=== PATIENT | female | born 1980 | race Hispanic/Latino ===

== ENCOUNTER → 2023-12-13 09:45 | Outpatient (REF) | payer OTHER, SELFPAY ==
[2023-12-13 11:12] LABS: Hemoglobin 11.1 g/dL (12.0-16.0)
[2023-12-13 12:06] LABS: Glycohemoglobin (HgbA1c) 5.4 % (4.0-5.6)
[2023-12-13 13:23] LABS: ALT (SGPT) 12 U/L (0-35); AST (SGOT) 22 U/L (14-36); Albumin 4.5 g/dl (3.5-5.0); Alkaline Phosphatase 85 U/L (38-126); Blood Urea Nitrogen 14 mg/dl (7-17); Calcium 9.7 mg/dl (8.4-10.2); Carbon Dioxide 26 mmol/L (22-30); Chloride 104 mmol/L (98-107); Glucose 96 mg/dl (70-99); HDL Cholesterol 61 mg/dl; LDL Cholesterol, Calculated 101 mg/dl; Potassium 4.5 mmol/L (3.5-5.1); Sodium 140 mmol/L (135-145); Total Bilirubin 0.4 mg/dl (0.2-1.3); Total Cholesterol 170 mg/dl (50-199); Total Protein 7.2 g/dl (6.3-8.2); Triglyceride 43 mg/dl (10-149); Very Low Density Lipoprotein 8 mg/dl (0-30); eGFR > 60.00
[2023-12-14 18:05] LABS: H. pylori Breath Test Negative (Negative)
== END ==
LOC: REG 09:45
PROVIDERS: ATTENDING PHYSICIAN Nurse Practitioner Acute Care
DX: R10.13 Epigastric pain (principal)
CPT/HCPCS: 36415; 80053; 80061; 83013; 83036; 85018

== ENCOUNTER → 2023-12-18 14:57 | Outpatient (REF) | payer OTHER, SELFPAY | LOC: CLINIC 14:57 | PROVIDERS: ATTENDING PHYSICIAN Nurse Practitioner Acute Care | DX: Z12.31 Encounter for screening mammogram for malignant neoplasm of breast (principal) | CPT/HCPCS: 77063; 77067 ==

== ENCOUNTER → 2025-01-29 10:03 | Outpatient (REF) | payer OTHER, SELFPAY ==
[2025-01-29 10:56] LABS: Hematocrit 36.6 % (37.0-47.0); Hemoglobin 11.4 g/dL (12.0-16.0); Mean Corp Hgb Conc. 31.1 g/dL (33.0-37.0); Mean Corpuscular Volume 84.5 fL (81.0-99.0); Platelet Count 249 10^3/uL (130-400); Red Cell Dist. Width 15.0 % (11.5-14.5)
[2025-01-29 11:36] LABS: ALT (SGPT) 13 U/L (0-35); AST (SGOT) 19 U/L (14-36); Albumin 4.6 g/dl (3.5-5.0); Alkaline Phosphatase 71 U/L (38-126); Blood Urea Nitrogen 13 mg/dl (7-17); Calcium 9.7 mg/dl (8.4-10.2); Carbon Dioxide 27 mmol/L (22-30); Chloride 107 mmol/L (98-107); Glucose 100 mg/dl (70-99); Potassium 4.7 mmol/L (3.5-5.1); Sodium 140 mmol/L (135-145); Total Protein 7.9 g/dl (6.3-8.2); eGFR > 60.00
== END ==
LOC: CLINIC 10:03
PROVIDERS: ATTENDING PHYSICIAN Nurse Practitioner Adult Health
DX: R10.13 Epigastric pain (principal)
CPT/HCPCS: 36415; 80053; 83013; 85027

== ENCOUNTER → 2025-02-09 16:52 | Outpatient (REF) | payer OTHER, SELFPAY | LOC: CLINIC 16:52 | PROVIDERS: ATTENDING PHYSICIAN Nurse Practitioner Adult Health | DX: R10.13 Epigastric pain (principal) | CPT/HCPCS: 82270 ==

== ENCOUNTER 2025-04-16 21:58 | Day surgery (SDC) | payer OTHER, SELFPAY ==
[2025-04-16 14:02] VITALS: BP 138/69
[2025-04-16 14:40] LABS: Hematocrit 38.9 % (37.0-47.0); Hemoglobin 11.9 g/dL (12.0-16.0); Mean Corp Hgb Conc. 30.6 g/dL (33.0-37.0); Mean Corpuscular Volume 87.6 fL (81.0-99.0); Nucleated Red Blood Cells % 0 %; Platelet Count 293 10^3/uL (130-400); Red Cell Dist. Width 15.1 % (11.5-14.5)
[2025-04-16 15:01] LABS: HCG, Serum Qualitative Screen Negative
[2025-04-16 15:05] LABS: ALT (SGPT) 17 U/L (0-35); AST (SGOT) 24 U/L (14-36); Albumin 4.8 g/dl (3.5-5.0); Alkaline Phosphatase 85 U/L (38-126); Blood Urea Nitrogen 10 mg/dl (7-17); Calcium 10.2 mg/dl (8.4-10.2); Carbon Dioxide 29 mmol/L (22-30); Chloride 103 mmol/L (98-107); Glucose 106 mg/dl (70-99); Lipase 81 U/L (23-300); Potassium 4.3 mmol/L (3.5-5.1); Sodium 137 mmol/L (135-145); Total Protein 8.5 g/dl (6.3-8.2); eGFR > 60.00
[2025-04-16 15:08] LABS: Troponin I < 0.012 ng/ml
[2025-04-16 18:09] VITALS: BP 135/79
[2025-04-16 18:10] VITALS: BMI 27.6
--- NOTE | 2025-04-16 18:39 | ED.GENMED ---
History of Present Illness
<Hollie Brown NP - Last Filed: 04/16/25 23:31>
General
Chief Complaint: Abdominal Pain
Source: patient
Exam Limitations: none
Time Seen by Provider: 04/16/25 18:01
Nursing documentation reviewed up to this point in time: agreed with
History of Present Illness
History of Present Illness:
Patient to the emergency department with complaint of severe upper abdominal pain. Symptoms started this morning. She states she has had upper abdominal pain in the past however the pain usually responds to Pepto-Bismol or Tums. Today the pain
was worse in intensity and did not respond to Tums or Pepto. She denies any vomiting, reports some nausea. She denies any fever or chills. She brought to the emergency department by her daughter for evaluation.
Past History
<Hollie Brown NP - Last Filed: 04/16/25 23:31>
Past History
ED Past Medical History: None
ED Past Surgical History:
Social History
Tobacco: Non-smoker
Alcohol: None
Drug: None
Living: with family
Family History
Family History: Other (No significant)
Review of Systems
<Hollie Brown NP - Last Filed: 04/16/25 23:31>
Review of Systems
Allergies reviewed?: Yes
All Other Systems: ROS reviewed and negative except as documented in HPI and ROS
Constitutional: Reports no symptoms
EENT: Reports no symptoms
Respiratory: Reports no symptoms
Cardiac: Reports no symptoms
ABD/GI: Reports abdominal pain (Upper abdominal pain radiating through to her back.)
: Reports no symptoms
Musculoskeletal: Reports no symptoms
Skin: Reports no symptoms
Neurological: Reports no symptoms
Psychiatric: Reports no symptoms
Phy Exam
<Hollie Brown NP - Last Filed: 04/16/25 23:31>
General Physical Exam
General Presentation: moderate distress
General age: appears stated age
General Skin: warm and dry
General Habitus: normal
General Mental: alert
Cardiovascular Exam
Cardiovascular Exam: regular rate/rhythm and no edema
Pulmonary Exam
Pulmonary Exam: lungs clear and no respiratory distress
Gastrointestinal Exam
Gastrointestinal Exam: normal bowel sounds, soft, no organomegaly, no pulsatile mass, non distended and no cva tenderness
Palpation: left upper quadrant: Mild tenderness, left lower quadrant: No tenderness, right upper quadrant: Moderate tenderness and right lower quadrant: No tenderness
Musculoskeletal Exam
Musculoskeletal Exam: full ROM and neuro vasc intact
Skin Exam
Skin Exam: normal color, warm/dry and no rash
Psychiatric Exam
Psychiatric Exam: normal mood/affect
Course
<Hollie Brown NP - Last Filed: 04/16/25 23:31>
Orders/Labs/Results
Orders:
Orders
04/16/25 14:04
Electrocardiogram (*1) Urgent
Reason for Study: Abdominal Pain
04/16/25 14:05
EKG- Treatment ONCE
Test Result ONCE
04/16/25 14:26
Complete Blood Count/With Diff Urgent
Comprehensive Metabolic Panel Urgent
HCG, Serum Qualitative Screen Urgent
Lipase Urgent
Comment: ADD ON
Troponin I Urgent
04/16/25 14:34
Add On- LAB Urgent
Tests Added?: Lipase
04/16/25 Dinner
NPO
Allow oral meds: Yes
Allow clear liquids: No
NPO with Ice Chips: No
04/16/25 18:04
US Abdomen Complete/Upper Urgent
Comment:
Reason For Exam: pain
04/16/25 18:21
Urinalysis Reflex To Culture Urgent
Date Specimen was Collected: 04/16/25
Time Specimen was Collected: 18:19
Urine Microscopic Reflex Cult Urgent
04/16/25 18:39
0.9% Sodium Chloride 1000 ml [Nss] 1,000 ml IV BOLUS
Mag Hydrox/Al Hydrox/Simeth [Maalox] 30 ml Phenobarb/Hyoscy/Atropine/Scop [] 10 ml Viscous Lidocaine 2% [Xylocaine Viscous Cup] 10 ml PO NOW
04/16/25 19:12
Mag Hydrox/Al Hydrox/Simeth [Maalox] 30 ml .ROUTE .STK-MED ONE
Phenobarb/Hyoscy/Atropine/Scop [] 10 ml .ROUTE .STK-MED ONE
Viscous Lidocaine 2% [Xylocaine Viscous Cup] 15 ml .ROUTE .STK-MED ONE
04/16/25 19:46
CT Abd/pelvis W Iv Cont Urgent
Comment:
Reason For Exam: upper abd. pain
04/16/25 21:18
HYDROmorphone [Dilaudid] 0.5 mg IV NOW STA
Ondansetron Injectable [Zofran] 4 mg IV NOW STA
04/16/25 21:47
Admit/Transfer Patient As Directed
Co-Sign Provider:
Level of Care: Observation services
Assign to:: Medical/Surgical
Physician / Group: ya duckworth
Diagnosis: abd pain 2/2 cbd dilation concern choldeocholelithiasis
GASTROINTESTINAL CONSULT Routine
Consulting Provider: Kmear Hernandez
Was physician already notified: Yes
Reason for consult: cbd dilation single gallstone
04/16/25 21:48
Code Status As Directed
Resuscitation Status: Full Code
04/16/25 21:50
PRN Pain Medication Management As Directed
May give lesser potent ordered pain med per pt: Yes
preference::
Protocol:: Medication orders for pain may be administered in a
manner that supports deferring to patient preference
when the pt is:
- Requesting an ordered lesser potent pain medication.
Least to most potent pain medications are defined
as: acetaminophen < NSAID < tramadol < opioids
(morphine, oxycodone, hydromorphone).
- Requesting a lesser dose of the same medication IF
ORDERED.
- Requesting a less intrusive route of administration
if both routes are prescribed by the provider (PO <
IV).
04/16/25 22:36
0.9% Sodium Chloride 1000 ml [Nss] 1,000 ml IV 100 mls/hr
Acetaminophen [Tylenol/Feverall] 650 mg RECTAL Q4HPRN PRN
HYDROmorphone [Dilaudid] 0.5 mg IV Q3HPRN PRN
HYDROmorphone [Dilaudid] 1 mg IV Q4HPRN PRN
Ketorolac [Toradol] 15 mg IV Q6HPRN PRN
Ondansetron Injectable [Zofran] 4 mg IV Q6HPRN PRN
04/16/25 22:36
Activity As Directed
Activity Level: As Tolerated
Pneumatic Compression Sleeves As Directed
Type: Knee high
Vital Signs As Directed
Frequency: Per unit guidelines
DX Deep Vein Thrombosis Video Routine
04/17/25 06:00
Cardiovascular Evaluation IN AM
Complete Blood Count/With Diff IN AM
Comprehensive Metabolic Panel IN AM
MR Mrcp Without IN AM
Comment: include MRI abdomen
Reason For Exam: cbd dilation, gallstones
OK for patient to be off Cardiac Monitoring for MRI: Yes
Recent pill cam endoscopy?: No
Pacemaker/Defibrillator?: No
04/17/25 08:00
Pantoprazole [Protonix IV] 40 mg IV DAILY
04/18/25 06:00
Complete Blood Count/With Diff IN AM
Comprehensive Metabolic Panel IN AM
Abnormal Lab Results
04/16/25 04/16/25
14:26 18:21
Hgb 11.9 L g/dL
(12.0-16.0)
MCH 26.8 L pg
(27.0-31.0)
MCHC 30.6 L g/dL
(33.0-37.0)
RDW 15.1 H %
(11.5-14.5)
MPV 11.5 H fL
(7.4-10.4)
Creatinine 0.5 L mg/dL
(0.6-1.0)
Glucose 106 H mg/dl
(70-99)
Total Protein 8.5 H g/dl
(6.3-8.2)
Urine Ketones 3+ A
(Negative)
Ur Occult Blood Reflex 4+ A
(Negative)
Urine RBC 26-30 A /HPF
(0-2)
Urine Bacteria (Reflex) Few A
(Negative)
Urine Albumin (Reflex) 1+ A
(Neg - Trace)
04/16/25 14:26
04/16/25 14:26
Vital Signs
Initial and Last Documented VS:
Initial Vital Signs
Temp Pulse Resp BP Pulse Ox
98.2 F 67 16 138/69 99
04/16/25 14:02 04/16/25 14:02 04/16/25 14:02 04/16/25 14:02 04/16/25 14:02
Last Documented Vital Signs
Temp Pulse Resp BP Pulse Ox
98.2 F 67 16 135/79 99
04/16/25 14:02 04/16/25 14:02 04/16/25 14:02 04/16/25 18:09 04/16/25 22:00
<Jax Chan, DO - Last Filed: 04/16/25 21:53>
Orders/Labs/Results
Orders:
Orders
04/16/25 14:04
Electrocardiogram (*1) Urgent
Reason for Study: Abdominal Pain
04/16/25 14:05
EKG- Treatment ONCE
Test Result ONCE
04/16/25 14:26
Complete Blood Count/With Diff Urgent
Comprehensive Metabolic Panel Urgent
HCG, Serum Qualitative Screen Urgent
Lipase Urgent
Comment: ADD ON
Troponin I Urgent
04/16/25 14:34
Add On- LAB Urgent
Tests Added?: Lipase
04/16/25 Dinner
NPO
Allow oral meds: Yes
Allow clear liquids: No
NPO with Ice Chips: No
04/16/25 18:04
US Abdomen Complete/Upper Urgent
Comment:
Reason For Exam: pain
04/16/25 18:21
Urinalysis Reflex To Culture Urgent
Date Specimen was Collected: 04/16/25
Time Specimen was Collected: 18:19
Urine Microscopic Reflex Cult Urgent
04/16/25 18:39
0.9% Sodium Chloride 1000 ml [Nss] 1,000 ml IV BOLUS
Mag Hydrox/Al Hydrox/Simeth [Maalox] 30 ml Phenobarb/Hyoscy/Atropine/Scop [] 10 ml Viscous Lidocaine 2% [Xylocaine Viscous Cup] 10 ml PO NOW
04/16/25 19:12
Mag Hydrox/Al Hydrox/Simeth [Maalox] 30 ml .ROUTE .STK-MED ONE
Phenobarb/Hyoscy/Atropine/Scop [] 10 ml .ROUTE .STK-MED ONE
Viscous Lidocaine 2% [Xylocaine Viscous Cup] 15 ml .ROUTE .STK-MED ONE
04/16/25 19:46
CT Abd/pelvis W Iv Cont Urgent
Comment:
Reason For Exam: upper abd. pain
04/16/25 21:18
HYDROmorphone [Dilaudid] 0.5 mg IV NOW STA
Ondansetron Injectable [Zofran] 4 mg IV NOW STA
04/16/25 21:47
Admit/Transfer Patient As Directed
Co-Sign Provider:
Level of Care: Observation services
Assign to:: Medical/Surgical
Physician / Group: ya duckworth
Diagnosis: abd pain 2/2 cbd dilation concern choldeocholelithiasis
GASTROINTESTINAL CONSULT Routine
Consulting Provider: Kemar Hernandez
Was physician already notified: Yes
Reason for consult: cbd dilation single gallstone
04/16/25 21:48
Code Status As Directed
Resuscitation Status: Full Code
04/16/25 21:50
PRN Pain Medication Management As Directed
May give lesser potent ordered pain med per pt: Yes
preference::
Protocol:: Medication orders for pain may be administered in a
manner that supports deferring to patient preference
when the pt is:
- Requesting an ordered lesser potent pain medication.
Least to most potent pain medications are defined
as: acetaminophen < NSAID < tramadol < opioids
(morphine, oxycodone, hydromorphone).
- Requesting a lesser dose of the same medication IF
ORDERED.
- Requesting a less intrusive route of administration
if both routes are prescribed by the provider (PO <
IV).
04/16/25 22:36
0.9% Sodium Chloride 1000 ml [Nss] 1,000 ml IV 100 mls/hr
Acetaminophen [Tylenol/Feverall] 650 mg RECTAL Q4HPRN PRN
HYDROmorphone [Dilaudid] 0.5 mg IV Q3HPRN PRN
HYDROmorphone [Dilaudid] 1 mg IV Q4HPRN PRN
Ketorolac [Toradol] 15 mg IV Q6HPRN PRN
Ondansetron Injectable [Zofran] 4 mg IV Q6HPRN PRN
04/16/25 22:36
Activity As Directed
Activity Level: As Tolerated
Pneumatic Compression Sleeves As Directed
Type: Knee high
Vital Signs As Directed
Frequency: Per unit guidelines
DX Deep Vein Thrombosis Video Routine
04/17/25 06:00
Cardiovascular Evaluation IN AM
Complete Blood Count/With Diff IN AM
Comprehensive Metabolic Panel IN AM
MR Mrcp Without IN AM
Comment: include MRI abdomen
Reason For Exam: cbd dilation, gallstones
OK for patient to be off Cardiac Monitoring for MRI: Yes
Recent pill cam endoscopy?: No
Pacemaker/Defibrillator?: No
04/17/25 08:00
Pantoprazole [Protonix IV] 40 mg IV DAILY
04/18/25 06:00
Complete Blood Count/With Diff IN AM
Comprehensive Metabolic Panel IN AM
Abnormal Lab Results
04/16/25 04/16/25
14:26 18:21
Hgb 11.9 L g/dL
(12.0-16.0)
MCH 26.8 L pg
(27.0-31.0)
MCHC 30.6 L g/dL
(33.0-37.0)
RDW 15.1 H %
(11.5-14.5)
MPV 11.5 H fL
(7.4-10.4)
Creatinine 0.5 L mg/dL
(0.6-1.0)
Glucose 106 H mg/dl
(70-99)
Total Protein 8.5 H g/dl
(6.3-8.2)
Urine Ketones 3+ A
(Negative)
Ur Occult Blood Reflex 4+ A
(Negative)
Urine RBC 26-30 A /HPF
(0-2)
Urine Bacteria (Reflex) Few A
(Negative)
Urine Albumin (Reflex) 1+ A
(Neg - Trace)
04/16/25 14:26
04/16/25 14:26
Vital Signs
Initial and Last Documented VS:
Initial Vital Signs
Temp Pulse Resp BP Pulse Ox
98.2 F 67 16 138/69 99
04/16/25 14:02 04/16/25 14:02 04/16/25 14:02 04/16/25 14:02 04/16/25 14:02
Last Documented Vital Signs
Temp Pulse Resp BP Pulse Ox
98.2 F 67 16 135/79 99
04/16/25 14:02 04/16/25 14:02 04/16/25 14:02 04/16/25 18:09 04/16/25 22:00
<Hollie Brown NP - Last Filed: 04/16/25 23:31>
*Radiology
Radiology exam reviewed: radiology read reviewed
*Pulse Oximetry
SaO2: 100
Oxygen Mode of Delivery: Room air
Patient hypoxic: no
*Critical Care Note
Total Time (30-74mins, 75-104mins- exclusive of procedures): Not Applicable
<Hollie Brown NP - Last Filed: 04/16/25 23:31>
Update Note
Update Note:
Patient to the emergency department with severe upper abdominal pain. Pain started this morning, reports radiation to her back. She reports nausea but no vomiting. Denies fever or chills. She has had upper abdominal pain in the past but states
it typically responds to Pepto or Tums. Today's pain was worse in intensity and now radiates. No improvement with Pepto or Tums. Vital signs stable she remains afebrile. Labs reviewed, WBC 8.4. LFTs normal. Ultrasound report reviewe.
Cholelithiasis noted, no gallbladder wall thickening or findings to suggest biliary tract dilatation. Mildly enlarged common bile duct. Gallbladder wall at least top normal no findings to suggest intrahepatic biliary tract dilatation. She has
mild extrahepatic biliary tract dilatation, CBD measures 0.7 -0.8 cm without findings to confirm radiopaque calculus, consider MRI/MRCP. Results discussed with patient and daughter. Case discussed with Dr. Chan. Will plan to admit to the
hospitalist for given her abdominal pain. Dr. Hernandez notified of above, will consult with patient.
ED Attending Note
<Hollie Brown TALENT ENGINEER - Last Filed: 04/16/25 23:31>
-
Portions of this chart may have been created with voice recognition software.� Occasional wrong word or��sound alike� substitutions may have occurred due to the inherent limitations of voice recognition software.
<Jax Chan DO - Last Filed: 04/16/25 21:53>
ED Attending Note
Patient seen and examined by attending physician: Yes
ED Attending Note:
I have reviewed and agree with history treatment plan by Hollie Brown. Patient with distended gallbladder and enlarged common bile duct concerning for choledocholithiasis and cholecystitis. Admit to hospitalist for further evaluation likely to
include MRCP.
Discharge Plan
Departure
Patient Disposition: Admit
Date of Disposition: 04/16/25
Time of Disposition: 21:12
Presentation/result/management discussed w/ accepting MD/DO: Hospitalist
Patient with high blood pressure during this ER visit?: No
Condition: Fair
Covid-19: Not Applicable
Discharge Problem:
Abdominal pain
Interventions
Interventions:
*Risk Screen - Suicide Last Done: 04/16/25 14:04
*General Assessment Last Done: 04/16/25 18:11
*Neglect/Abuse Screening Last Done: 04/16/25 14:04
*ED- Fall Risk Assessment Last Done: 04/16/25 18:11
*ED COVID-19 Vaccine History Last Done: 04/16/25 18:11
*ED Influenza Vaccine History Last Done: 04/16/25 18:11
*Nursing Disposition Last Done: 04/16/25 22:30
IK-Lzormt-Svwansajvj Assessment Last Done: 04/16/25 18:11
Discharge Date and Time
Discharge Date/Time: 04/16/25 22:30
[2025-04-16 18:50] LABS: Urine Character Slightly Cloudy (Clear)
[2025-04-16 19:10] LABS: Urine Squamous Cell 21-25 /LPF (Few)
[2025-04-16 19:11] LABS: Urine Red Blood Cell 26-30 /HPF (0-2)
[2025-04-16] MEDS: MAALOX 50 PO (19:18)
[2025-04-16] MEDS: NSS 1000 IV ×2 (19:24→22:59)
--- NOTE | 2025-04-16 21:29 | HPS.HSE ---
Addendum entered and electronically signed by George Rivas MD 04/16/25 22:22:
This is an addendum to the H&P written by Larissa Hannah on 04/16/2025. �Patient seen and examined independently with [employer] TRAINER.
44-year-old female past medical history of gallstones presenting with severe upper abdominal pain with nausea. �Did have some sweating with the pain.
Vital signs unremarkable.
Labs unremarkable.
Abdominal ultrasound shows cholelithiasis, no gallbladder wall thickening or findings to suggest intrahepatic biliary tract dilatation. �Mildly enlarged common bile duct. �CT abdomen pelvis shows mild extrahepatic biliary tract dilatation, common
bile duct measuring 0.7 to 0.8 cm without calculus.
Patient with cholelithiasis/likely choledocholithiasis. �IV fluids given.� NPO.� Check MRCP. �Dilaudid, Zofran. �GI consulted. �General surgery consulted.
Original Note:
Family Physician
-
Family Physician: * NONE
Chief Complaint
-
Midepigastric to right upper quadrant abdominal pain with nausea
History of Present Illness
44-year-old female complaining of severe upper abdominal pain that started this a.m. however she states she has had upper abdominal pain in the past usually responds to Pepto-Bismol or Tums. She reports nausea without vomiting she denies fever,
chills, chest pain, palpitations, cough, shortness of breath, diarrhea, urinary symptoms.
Medical History
Past Medical History
Past Medical History: Reports None
Past Surgical History: Reports Appendectomy (Laparoscopic) and
Social History
Tobacco: Non-smoker
Alcohol: None
Drug: None
Personal: Single
Living: Alone
Family History
Family History: Other (No family history of gallstones)
Allergies / Home Medications
Allergies reflects when Allergies were last updated in [facility].
Home Medications with original date entered in [facility]
Allergy/Medication List:
Allergies
Allergy/AdvReac Type Severity Reaction Status Date / Time
No Known Allergies Allergy Verified 05/18/16 11:43
Home Medications
acetaminophen 300 mg-codeine 30 mg tablet 1 - 2 tab PO Q4HPRN PRN mod-severe pain ##20 05/19/16
ibuprofen 200 mg tablet (Advil) 200 - 600 mg (1 - 3 x 200 mg) PO Q6H mild pain, red inflam ##0 05/19/16
polyethylene glycol 3350 17 gram oral powder packet 17 grams feeding tube DAILY avoid constipation #10 packets 05/19/16
Review of Systems
-
History Source: Patient and Family (Daughter at bedside translating however patient does speak Greenlandic but primary language is Latvian)
A 12 point ROS was completed and negative except as noted: Yes
Constitutional: Denies Fever or Chills
EENT: Denies Sore Throat or Runny Nose
Respiratory: Denies Cough or Trouble Breathing
Cardiac: Denies Chest Pain, Diaphoresis, Palpitations or Syncope
Abdomen/GI: Reports Abdominal Pain (Epigastric to right upper quadrant) and Nausea; Denies Vomiting, Diarrhea, Constipated, Bloody Stools or Black Stools
: Denies Dysuria, Frequency, Flank Pain, Incontinence, Difficulty Voiding or Urgency
Musculoskeletal: Denies Joint Pain or Edema
Skin: Denies Itching or Rash
Neurological: Denies Dizzy, Headache or Weakness
Endocrine: Reports No Symptoms
Hematologic/Lymphatic: Reports No Symptoms
Psych: Reports Calm
Physical Exam
Vital Signs
Vital Signs
Temp Pulse Resp BP Pulse Ox
98.2 F 67 16 135/79 100
04/16/25 14:02 04/16/25 14:02 04/16/25 14:02 04/16/25 18:09 04/16/25 21:12
Physical Exam
General: Pain; No Fever or Chills
HEENT: NormoCephalic, Anicteric, Moist mucous membranes, PERRLA, [place] Conjunctivae and No Ptosis
Respiratory: Clear; No Wheezes, Rales or Rhonchi
Cardiac: S1/S2 and Regular Rhythm; No Murmur, Rub, Gallop or Peripheral Edema
Breast: Deferred by me
GI: Soft, Non Distended, Normal Bowel Sounds, Tender (Epigastric to right upper quadrant) and No Hepatosplenomegaly
Rectal: Deferred by Provider
Genito-urinary: Deferred by me
Musculoskeletal: No Clubbing, No Cyanosis and No Edema
Skin: Warm and Dry; No Rash or Jaundice
Neuro: AO x 3, No Motor Deficits, Nonfocal/grossly intact, Cranial Nerves Intact and No Sensory Deficits; No Slurred Speech, Facial Droop, Tremors or Sedated
Psych: Calm
Laboratory Results
-
04/16/25 14:26
04/16/25 14:26
Laboratory Results
Total Bilirubin 0.6 mg/dl (0.2-1.3) 04/16/25 14:26
AST 24 U/L (14-36) 04/16/25 14:26
ALT 17 U/L (0-35) 04/16/25 14:26
Alkaline Phosphatase 85 U/L (38-126) 04/16/25 14:26
Troponin I < 0.012 ng/ml 04/16/25 14:26
Lipase 81 U/L (23-300) 04/16/25 14:26
Data Reviewed
-
CT Scan: Report Reviewed by me
Ultrasound: Report Reviewed by me
Lab Data: Labs Reviewed by me
Impression/Plan
-
Impression/plan:
Observation MedSurg
#ABD pain with mild CBD dilation concern for choledocholithiasis
History gallstones 5 years ago
-Consult GI�Dr. Stone aware
-Consult general surgery
-MRCP/MRI abdomen
- IV NSS 1 L given in ER, continue IV NSS 100 cc an hour
- IV Zofran as needed
- Dilaudid as needed
- Follow CBC, CMP
CT abdomen pelvis: Small gallstone seen within the gallbladder on concurrent ultrasound not well appreciated on this study.
Gallbladder wall at least top normal. No findings to suggest intrahepatic biliary tract dilatation.
Mild extrahepatic biliary tract dilatation enlargement, common bile duct measuring 0.7-0.8 cm without findings to confirm radiopaque calculus.
Suggest correlation with LFTs. Consider MRI/ MRCP for more complete evaluation.
Abdominal ultrasound: Cholelithiasis no gallbladder wall thickening mildly enlarged CBD duct no Frankel sign
DVT prophylaxis
SCDs
Full code
[2025-04-16] MEDS: ZOFRAN 4 MG IV (21:35)
[2025-04-16] MEDS: DILAUDID 0.5 MG IV (21:40)
--- NOTE | 2025-04-16 22:50 | PTCARENOTE ---
pt arrived to 2S @2240. pt ambulated from stretcher to bed. Vital signs stable. No c/o pain. Daughter at bedside. Call garcia within reach. Care ongoing.
[2025-04-16 23:10] VITALS: BP 122/74; BMI 27.9
[2025-04-17] VITALS (11 sets, daily range): BP systolic 93–121; BP diastolic 52–77
[2025-04-17] MEDS: DILAUDID 0.5 MG IV (01:13)
[2025-04-17 05:57] LABS: Hematocrit 33.8 % (37.0-47.0); Hemoglobin 10.5 g/dL (12.0-16.0); Mean Corp Hgb Conc. 31.1 g/dL (33.0-37.0); Mean Corpuscular Volume 85.4 fL (81.0-99.0); Nucleated Red Blood Cells % 0 %; Platelet Count 259 10^3/uL (130-400); Red Cell Dist. Width 15.3 % (11.5-14.5)
[2025-04-17 06:18] LABS: ALT (SGPT) 14 U/L (0-35); AST (SGOT) 19 U/L (14-36); Albumin 3.8 g/dl (3.5-5.0); Alkaline Phosphatase 65 U/L (38-126); Blood Urea Nitrogen 8 mg/dl (7-17); Calcium 8.7 mg/dl (8.4-10.2); Carbon Dioxide 27 mmol/L (22-30); Chloride 104 mmol/L (98-107); Estimated Creatinine Clearance 120 ml/min; Glucose 96 mg/dl (70-99); HDL Cholesterol 49 mg/dl; LDL Cholesterol, Calculated 102 mg/dl; Potassium 3.5 mmol/L (3.5-5.1); Sodium 135 mmol/L (135-145); Total Protein 6.9 g/dl (6.3-8.2); Very Low Density Lipoprotein 12 mg/dl (0-30); eGFR > 60.00
--- NOTE | 2025-04-17 07:14 | CON.GI ---
Addendum entered and electronically signed by Kemar Hernandez DO 04/17/25 08:21:
I saw and examined the patient.
The KITCHEN FOOD SERVER's note was reviewed and I agree with the note.
Comment: Ms. Dian Yu is a 44 y.o female presenting with recurrent abdominal pain found to have cholelithiasis and extrahepatic biliary ductal dilatation on US and CT imaging. LFTs normal without biliary obstruction. Clinically, her symptoms are
most consistent with biliary colic and likely had a choledocholithiasis with passage of a small stone and/or sludge given her extrahepatic biliary ductal dilatation but without any intraluminal filling defects. She is without any symptoms to suggest
biliary sepsis/cholangitis and suspect her leukocytosis is likely reactive. As her repeat LFTs this AM are still reassuring without findings to suggest biliary obstruction, would recommend lap margoth with IOC versus MRI/MRCP. In discussion with
surgery this AM, plan on proceeding with lap margoth with IOC today. Thus, defer rest of management as per surgery. If IOC is positive, then would consider potential ERCP if filling defect were to be visualized. Rest of care as outlined below.
Discussed with surgical team and primary team this AM. GI will sign-off, please re-contact with any questions or concerns.
Original Note:
Consultation
-
Date/Time Consultation Requested: 04/16/252144
Date/Time Consultation Performed: 04/17/2515
Requesting Provider: JYOTI Schulte
Performing Provider: JYOTI Sousa, Kemar Hernandez MD
Reason for Consultation: abdominal pain
Medical History
Chief Complaint / HPI
History of Present Illness:
Pt is a 44yo with hx prior appe, renal stones, ovarian cyst, anemia, pre DM, and recurrent abdominal pain. In 2022 Pt was noted + H pylori and treated with Lansoprazole/Clarithromycin/amoxicillin with several repeat breath testing neg last testing
in 01/2025. She now presents with worsening abdominal pain. She is noted with WBC up to 11,200, hbg 10.5, with normal LFT's and lipase. Imaging on admission with US noted cholelithiasis mildly enlarged CBD, no thickening, neg frankel sign, CT A/p
with IV and oral with small gallstones in gallbladder not seen on CT, GB wall top normal. no intrahepatic ductal dilatation but mild extrahepatic biliary dilatation with CBD 0.7-0.8cm without stone. b/l ovarian cysts.
In review with patient she admits to intermittent pain. 04/16 was worse pain after eating pancakes and chocolate rating 10/10 with nausea and vomiting prompting admission. Pain now 0/10. She admits to pain with wrap around to back and left
shoulder. She otherwise denies odynophagia, dysphagia, GERD, diarrhea, constiaption, blood or black in stools, dark urine or levy stools. Admits to rare NSAID use. No anticoagulation use. No wt loss or wt loss medication use. T max 99.1 after
admission.
Past Medical History
Past Medical History: Other (renal stones, H pylori 2022 (repeat breath test neg) , pre DM, ovarian cyst, anemia )
Past Surgical History: Appendectomy and (1 and 3 vaginal deliveries )
Social History
Tobacco: Non-Smoker
Alcohol: None
Drug: None
Living: With Family
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
Family History
Family History: Other (denies family hx gallbladder problems)
Allergies / Home Medications
Allergy/AdvReac Type Severity Reaction Status Date / Time
No Known Allergies Allergy Verified 05/18/16 11:43
Review of Systems
-
History Source: Patient
Constitutional: Reports No Symptoms
EENT: Reports No Symptoms
Respiratory: Reports No Symptoms
Cardiac: Reports No Symptoms
Abdomen/GI: Reports Abdominal Pain, Nausea and Vomiting
: Reports No Symptoms
Musculoskeletal: Reports No Symptoms
Skin: Reports No Symptoms
Neurological: Reports Weakness
Endocrine: Reports No Symptoms
Hematologic/Lymphatic: Reports No Symptoms
Vital Signs
Temp Pulse Resp BP Pulse Ox
99.1 F 69 18 122/74 100
04/16/25 23:10 04/16/25 23:10 04/16/25 23:10 04/16/25 23:10 04/16/25 23:10
Physical Exam
Exam
General: Well Developed, Well Nourished and No Apparent Distress
HEENT: Normocephalic and Anicteric
Respiratory: Clear
Cardiac: Regular Rhythm
GI: Soft, Non Distended and Tender (minimal epigastric tenderness )
Musculoskeletal: No Clubbing and No Cyanosis
Skin: Warm and Dry
Neuro: Awake, Alert and AO x 3
Psych: Calm
Results
WBC 11.2 10^3/uL (4.8-10.8) H 04/17/25 05:29
Hgb 10.5 g/dL (12.0-16.0) L 04/17/25 05:29
Hct 33.8 % (37.0-47.0) L 04/17/25 05:29
MCV 85.4 fL (81.0-99.0) 04/17/25 05:29
Plt Count 259 10^3/uL (130-400) 04/17/25 05:29
Absolute Neuts (auto) 7.5 10^3/uL (1.4-6.5) H 04/17/25 05:29
Sodium 135 mmol/L (135-145) 04/17/25 05:29
Potassium 3.5 mmol/L (3.5-5.1) 04/17/25 05:29
Chloride 104 mmol/L (98-107) 04/17/25 05:29
Carbon Dioxide 27 mmol/L (22-30) 04/17/25 05:29
BUN 8 mg/dl (7-17) 04/17/25 05:29
Creatinine 0.5 mg/dL (0.6-1.0) L 04/17/25 05:29
Calcium 8.7 mg/dl (8.4-10.2) D 04/17/25 05:29
Total Bilirubin 0.8 mg/dl (0.2-1.3) 04/17/25 05:29
AST 19 U/L (14-36) 04/17/25 05:29
ALT 14 U/L (0-35) 04/17/25 05:29
Alkaline Phosphatase 65 U/L (38-126) 04/17/25 05:29
Lipase 81 U/L (23-300) 04/16/25 14:26
Diagnostic Image Results:
04/16- US abdomen Cholelithiasis. No gallbladder wall thickening or findings to suggest intrahepatic biliary tract dilatation. Mildly enlarged common bile duct. Negative sonographic Frankel's sign. Mid to distal abdominal aorta significantly
obscured, most likely by overlying bowel gas.
04/16- CT A/p IV and oral Small gallstone seen within the gallbladder on concurrent ultrasound not well appreciated on this study. Gallbladder wall at least top normal. No findings to suggest intrahepatic biliary tract dilatation.
Mild extrahepatic biliary tract dilatation enlargement, common bile duct measuring 0.7-0.8 cm without findings to confirm radiopaque calculus. Suggest correlation with LFTs. Consider MRI/ MRCP for more complete evaluation.
Bilateral ovarian cysts, most likely follicles, largest in the right ovary measuring approximately 3 cm.
Prior GI Procedures:
EGD: none
Colonoscopy: none
Assessment / Plan
-
Pt is a 44yo with hx prior appe, renal stones, ovarian cyst, anemia, pre DM, and recurrent abdominal pain. In 2022 Pt was noted + H pylori and treated with Lansoprazole/Clarithromycin/amoxicillin with several repeat breath testing neg last testing
in 01/2025. She now presents with worsening abdominal pain. She is noted with WBC up to 11,200, hbg 10.5, with normal LFT's and lipase. Imaging on admission with US noted cholelithiasis mildly enlarged CBD, no thickening, neg frankel sign, CT A/p
with IV and oral with small gallstones in gallbladder not seen on CT, GB wall top normal. no intrahepatic ductal dilatation but mild extrahepatic biliary dilatation with CBD 0.7-0.8cm without stone. b/l ovarian cysts. In review with patient she
admits to intermittent pain. 04/16 was worse pain after eating pancakes and chocolate rating 10/10 with nausea and vomiting prompting admission. Pain 0/10 after admission. . She admits to pain with wrap around to back and left shoulder. Admits
to rare NSAID use. No anticoagulation use. No wt loss or wt loss medication use. T max 99.1 after admission.
-epigastric abdominal pain with intermittent pain for several years
-US with cholelithiasis(not seen on CT) mild enlarged CBD
-hx H pylori 2022 with treatment and last testing neg 01/2025
-rare NSAID use
-anemia
other med problems:
prior appe, renal stones, ovarian cyst, anemia, pre DM
PLAN:etiology of epigastric pain related to cholelithiasis, choledocholithiasis with minimal CBD dilation on US, passed stone vs other-- doubt H pylori related with prior treatment in 2022 with neg breath testing 01/2025
plan for MRCP
pt feeling better today
LFT's and lipase renal normal
for surgical eval
cont PPI
NPO -- pending MRI timing and surgical plan can trial advancement
-
-
-
Thank you for consultation and allowing me to participate in the patient's care. Please call the economics department chair GI physician during the after hours with any questions or concerns.
[2025-04-17] MEDS: NSS (PRESERVATIVE FREE) 10 ML IV (08:39)
[2025-04-17] MEDS: PROTONIX IV 40 MG IV (08:39)
[2025-04-17] MEDS: ZOSYN 50 IV ×2 (08:40→22:29)
--- NOTE | 2025-04-17 08:59 | W.PN.HOSP.TC ---
Today's Communication/Plan
-
Going to OR
Assessment / Plan
Assessment / Plan
44-year-old woman complaining of severe upper abdominal pain that started in a.m of admit. however she states she has had upper abdominal pain in the past usually responds to Pepto-Bismol or Tums. She reports nausea without vomiting she denies
fever, chills, chest pain, palpitations, cough, shortness of breath, diarrhea, urinary symptoms.
ABD US IMPRESSION:
Cholelithiasis.
No gallbladder wall thickening or findings to suggest intrahepatic biliary tract dilatation.
Mildly enlarged common bile duct.
Negative sonographic Frankel's sign.
Mid to distal abdominal aorta significantly obscured, most likely by overlying bowel gas.
Pelvis/ABD CT:
Small gallstone seen within the gallbladder on concurrent ultrasound not well appreciated on this study.
Gallbladder wall at least top normal.
No findings to suggest intrahepatic biliary tract dilatation.
Mild extrahepatic biliary tract dilatation enlargement, common bile duct measuring 0.7-0.8 cm without findings to confirm radiopaque calculus.
Suggest correlation with LFTs. Consider MRI/ MRCP for more complete evaluation.
Bilateral ovarian cysts, most likely follicles, largest in the right ovary measuring approximately 3 cm.
1. Severe upper Abd pain - likely gall bladder, WBC today 11.2
Abdominal ultrasound shows cholelithiasis, no gallbladder wall thickening or findings to suggest intrahepatic biliary tract dilatation. �
Mildly enlarged common bile duct. �
CT abdomen pelvis shows mild extrahepatic biliary tract dilatation, common bile duct measuring 0.7 to 0.8 cm without calculus.
Patient going to OR today for lap margoth
IV fluids given.�
NPO.�
Dilaudid, Zofran as needed.
VCD for DVTp
Full code
Anticipated Discharge: 24 - 48 hours
Subjective/Interval History
-
Date of Service: April 17, 2025
Feels comfortable this am.
Objective Data
-
Labs:
Laboratory Results
04/17/25
05:29
WBC 11.2 H
Hgb 10.5 L
Hct 33.8 L
Plt Count 259
Sodium 135
Potassium 3.5
Chloride 104
Carbon Dioxide 27
BUN 8
Creatinine 0.5 L
Glucose 96
Calcium 8.7 D
Total Bilirubin 0.8
AST 19
ALT 14
Alkaline Phosphatase 65
Vital Signs:
Vital Signs
Temp Pulse Resp BP Pulse Ox
99.9 F 79 16 121/77 97
04/17/25 08:00 04/17/25 08:00 04/17/25 08:00 04/17/25 08:00 04/17/25 08:00
I&O
04/16/25 04/17/25 04/18/25
06:59 06:59 06:59
Intake Total 700 / 700
Balance 700 / 700
Review of Systems
-
History Source: Patient
All other systems: Reviewed and negative
Physical Exam
-
General: Well Developed, Well Nourished, No Apparent Distress, Comfortable and Conversant
HEENT: Normocephalic, Atraumatic and Moist Mucous Membranes
Respiratory: Clear to Auscultation
Cardiac: Regular Rhythm and S1/S2
GI: Soft
Musculoskeletal: No Clubbing and No Cyanosis
Skin: Warm and Dry
Neuro: Awake, Alert, Oriented and AO x 3
Psych: Calm
Data Reviewed
-
Labs: Labs Reviewed by me
--- NOTE | 2025-04-17 09:00 | CON.GS ---
Addendum entered and electronically signed by Maciej Almaraz MD 04/17/25 09:19:
Patient seen and examined.
Patient is a 44 yo F with a PMH of nephrolithiasis, H. pylori, s/p appendectomy, and s/p who presents with 24 hours of epigastric and RUQ abdominal discomfort. She states that her symptoms began yesterday morning after eating pancakes and
chocolate. Symptoms persisted throughout the day causing presentation to the ED. Pain described as sharp and in the epigastrium radiating to her RUQ and back. Associated nausea and vomiting. Associated chills, but no fevers. She denies any
jaundice, pale stools, or tea colored urine. She states that she has had 2 similar attacks over the past month though lasting only hours before self resolving. She reports attacks dating back almost 5 years. She has known history of
cholelithiasis. She has never met with a surgeon. Family history unremarkable.
Gen: NAD
Abd: soft, tender in epigastrium and RUQ, positive Frankel's sign, ND, non-peritoneal, prior incisions well healed
Labs and imaging reviewed.
Patient is a 44 yo F p/w acute cholecystitis, possible choledocholithiasis
The natural history and pathophysiology of biliary and stone disease was discussed. Anatomy was reviewed. Workup thus far including labs and imaging were reviewed. Options for management including further workup with MRI or proceeding with
laparoscopic cholecystectomy with cholangiogram were considered and discussed. The pros and cons of both approaches was discussed. Recommend laparoscopic cholecystectomy with IOC.
Plan for laparoscopic cholecystectomy with IOC. The procedure itself, as well as the risks, benefits, and alternatives was discussed. Specifically, we discussed the risks of bleeding, infection, injury to surrounding structures (bowel, bile
ducts), CBD injury, need for open procedure. Typical postprocedural recovery was discussed. Specifically, we discussed pain management and the 10 to 20% risks of fluctuations in GI function. All questions answered. Consent signed.
-- Laparoscopic cholecystectomy with IOC
-- NPO, IVF
-- Antibiotics: Zosyn
Original Note:
Consultation
-
Date/Time Consultation Performed: 04/17/25804
Medical History
-
Chief Complaint: RUQ pain
History of Present Illness:
44 yo female with a h/o c-sections and appendectomy who has a history of cholelithiasis with intermittent self limiting episodes of epigastric and RUQ pain with nausea usually after meals or at night awakening her from sleep of the past 5 years.
Yesterday, she had this pain again with nausea and vomiting after a large breakfast of pancakes with chocolate and symptoms persisted throughout the entire day causing her to present for evaluation. On exam, RUQ tenderness is present. She denies
active nausea currently. She denies fevers, chills, jaundice or acholic stools.
Past Medical History
Past Medical History: Other (renal stones, h. pylori 2022, ovarian cyst, anemia)
Past Surgical History: Appendectomy and
Social History
Tobacco: Non-Smoker
Alcohol: None
Personal:
Living: With Family
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
Family History
Family History: Reviewed & Not Pertinent
Allergies / Home Medications
Allergy/AdvReac Type Severity Reaction Status Date / Time
No Known Allergies Allergy Verified 05/18/16 11:43
Review of Systems
-
History Source: Patient
All other systems: Negative unless noted
A 10 point review of systems was completed, and was negative except as per HPI.
Physical Exam
Vital Signs
Temp Pulse Resp BP Pulse Ox
99.9 F 79 16 121/77 97
04/17/25 08:00 04/17/25 08:00 04/17/25 08:00 04/17/25 08:00 04/17/25 08:00
04/16/25 04/17/25 04/18/25
06:59 06:59 06:59
Actual Weight 73.663 kg
Body Mass Index (BMI) 27.9
Lab Results
04/17/25 05:29
04/17/25 05:
WBC 11.2 10^3/uL (4.8-10.8) H 04/17/25 05:29
Hgb 10.5 g/dL (12.0-16.0) L 04/17/25 05:
Hct 33.8 % (37.0-47.0) L 04/17/25 05:
Plt Count 259 10^3/uL (130-400) 04/17/25 05:29
Abs Immat Gran (auto) 0.0 10^3/uL (0-0.05) 04/17/25 05:
Neutrophils % 66.4 % (42.2-75.2) 04/17/25 05:29
Physical Exam
General: Well Developed and Well Nourished
HEENT: Moist Mucous Membranes
Respiratory: Non Labored Respirations
GI: Soft, Non Distended and Tender (RUQ)
Skin: Warm and Dry
Neuro: Awake, Alert and AO x 3
Psych: Calm
Data Reviewed
-
CT Scan: Image Personally Visualized and interpreted, Report Reviewed by me, Discussed with Physician and Discussed with Patient
Ultrasound: Image Personally Visualized and interpreted, Report Reviewed by me, Discussed with Physician and Discussed with Patient
Labs: Labs Reviewed by me, Discussed with Physician and Discussed with Patient
Assessment / Plan
-
44 yo female with recurrent episodes of postprandial epigastric/RUQ pain presenting with persistent symptoms with nausea and vomiting. CT imaging noted with some mild inflammatory changes to the gallbladder. CBD with mild dilatation and
cholelithiasis noted on US imaging. Mild leukocytosis. LFT's WNL. Tenderness to the RUQ persists. Afebrile. VSS. Suspect acute calculous cholecystitis vs choledocholithiasis/recently passed stone.
Plan:
Hold off on MRCP
Will plan OR today for laparoscopic cholecystectomy with cholangiogram to evaluate the CBD intraop
Appreciate gastroenterology, discussed plan of care with GI on nursing unit
Start IV Zosyn q6h
NPO for OR
Analgesics prn
SCDs for VTE ppx
--- NOTE | 2025-04-17 09:19 | W.SUR.PREOP ---
Pre-Operative Surgical Note
-
I have examined this patient prior to the performance of the scheduled procedure.
The patient's condition is unchanged from the time of the current History and
Physical and the patient is able to undergo the scheduled procedure.
[2025-04-17] MEDS: NSS 1000 IV (10:46)
--- NOTE | 2025-04-17 13:01 | CM ---
CM met with pt, spouse/Alfonso and 3 children (5, 14, 16 y/o)
They reside in a 3rd floor apartment with no elevator access, 3STE, 3 full flights to apartment
Pt is independent with her ADLs, no ADs
Pt is without insurance
Long time [facility] patient
Rx- Mino Pratt
Pt planned for lap margoth today
Discharge Disposition- home, no needs anticipated
--- NOTE | 2025-04-17 15:24 | W.IMMPOSTOP ---
Surgical Immed Post Op Note
-
Primary Surgeon: Sung
Assisting Surgeon: SONG Alcantara
Pre-op Diagnosis: Acute cholecystitis
Post-op Diagnosis: Acute cholecystitis and choledocholithiasis
Procedure Performed: Laparoscopic cholecystectomy with IOC, modifier 22 for fatty liver disease
Anesthesia Type: General
Specimen / Cultures:
1. Gallbladder
Estimated Blood Loss: 11 cc
Complications: None
Operative Findings:
1. Inflamed and edematous GB, thickened wall, hydropic bile, acute on chronic inflammation, moderate fatty liver disease
2. Critical view
3. IOC with several small obstructive stones in distal CBD, flushed through and non-obstructive after glucagon, one small remaining
4. Artery clips, duct with levy load stapler
[2025-04-17] MEDS: ZOSYN IV (15:45)
[2025-04-17] MEDS: NSS IV (19:30)
[2025-04-17] MEDS: TORADOL 15 MG IV (20:08)
[2025-04-18 03:00] VITALS: BP 106/58
[2025-04-18] MEDS: ZOSYN 50 IV ×4 (03:51→22:06)
--- NOTE | 2025-04-18 05:57 | W.PN.GI.CBS2 ---
Today's Communication / Plan
-
Advance diet to low-fat as tolerated. Consider EUS tomorrow if worsening pain or rise in LFTs given previous IOC findings. Rest of care as outlined below.
Assessment / Plan
-
Pt is a 44yo with hx prior appe, renal stones, ovarian cyst, anemia, pre DM, and recurrent abdominal pain. In 2022 Pt was noted + H pylori and treated with Lansoprazole/Clarithromycin/amoxicillin with several repeat breath testing neg last testing
in 01/2025. She now presents with worsening abdominal pain. She is noted with WBC up to 11,200, hbg 10.5, with normal LFT's and lipase. Imaging on admission with US noted cholelithiasis mildly enlarged CBD, no thickening, neg barrera sign, CT A/p
with IV and oral with small gallstones in gallbladder not seen on CT, GB wall top normal. no intrahepatic ductal dilatation but mild extrahepatic biliary dilatation with CBD 0.7-0.8cm without stone. b/l ovarian cysts. In review with patient she
admits to intermittent pain. 04/16 was worse pain after eating pancakes and chocolate rating 10/10 with nausea and vomiting prompting admission. Pain 0/10 after admission. . She admits to pain with wrap around to back and left shoulder. Admits
to rare NSAID use. No anticoagulation use. No wt loss or wt loss medication use. T max 99.1 after admission.
#Acute Calculous Cholecystitis w/ Choledocholithiasis
#Positive IOC resolved with flushing with one small stone/debris remaining
#Mildly Elevated Transaminases
#Leukocytosis
Impression: Patient presenting with epigastric pain and underwent lap margoth with IOC on 04/16/25 and found to have acute calculous cholecystitis with choledocholithiasis. IOC revealed small obstructing stones s/p flushing and glucagon with partial
clearance with one small, non-obstructing stone remaining. Clinically, she reports resolution of her previous abdominal pain and having mild discomfort although to be expected around her incisions. Slight bump in transaminases and likely from
post-cautery from cholecystectomy without other labs to suggest biliary obstruction and normal T Bili. Would consider EUS for further evaluation given previous IOC with tiny stone remaining however in discussion with surgery favor monitoring
clinically and advancing diet.
Recommendations:
- Agree with advancing diet to low-fat as tolerated
- Trend LFTs q daily
- If worsening pain, rise in LFTs or other clinical concern, would consider EUS tomorrow with Dr. Garcia with potential ERCP if stone is visualized
- Continue multi-modal pain control and IV anti-emetics PRN
- Discussed with surgery this AM
- Rest of ongoing care as per primary team
GI will continue to follow, please call with any questions or concerns.
Subjective
Subjective
Date of Service: April 18, 2025
- S/p lap margoth with IOC on 04/17/25: Found to have inflamed and edematous gallbladder, moderate fatty liver disease and IOC with several small obstructive stones in distal CBD, flushed and non-obstructive after glucagon, one small remaining
- Slight bump in transaminases but normal T Bili
- Otherwise, no acute events overnight
Resting comfortably this AM, denies any further upper abdominal pain aside from incisional tenderness. No other nausea/vomiting or other constitutional symptoms. Discussed previous IOC findings with surgery this AM
Objective
Data Reviewed
Laboratory Data:
Laboratory Results
Total Bilirubin 0.8 mg/dl (0.2-1.3) 04/17/25 05:29
AST 19 U/L (14-36) 04/17/25 05:29
ALT 14 U/L (0-35) 04/17/25 05:29
Alkaline Phosphatase 65 U/L (38-126) 04/17/25 05:29
Lipase 81 U/L (23-300) 04/16/25 14:26
Vital Signs and I&O:
Vital Signs
Temp Pulse Resp BP Pulse Ox
99.0 F 68 16 106/58 100
04/18/25 03:00 04/18/25 03:00 04/18/25 03:00 04/18/25 03:00 04/18/25 03:00
I&O
04/16/25 04/17/25 04/18/25
06:59 06:59 06:59
Intake Total 700 / 700 200 / 200
Balance 700 / 700 200 / 200
Physical Exam
Physical Exam
HEENT: Anicteric and Moist mucous membranes
Pulmonary: Other (Normal WOB on room air)
GI: Soft, Non Distended, Tender (Mild tenderness near incisions) and Other (Incisions with glue, c/d/i)
Extremities: Warm
Neuro: Non Focal
[2025-04-18 06:10] LABS: Hematocrit 31.8 % (37.0-47.0); Hemoglobin 9.9 g/dL (12.0-16.0); Mean Corp Hgb Conc. 31.1 g/dL (33.0-37.0); Mean Corpuscular Volume 85.9 fL (81.0-99.0); Nucleated Red Blood Cells % 0 %; Platelet Count 229 10^3/uL (130-400); Red Cell Dist. Width 15.2 % (11.5-14.5)
[2025-04-18] MEDS: NSS IV ×2 (06:21→16:45)
[2025-04-18 06:42] LABS: ALT (SGPT) 85 U/L (0-35); AST (SGOT) 108 U/L (14-36); Albumin 3.5 g/dl (3.5-5.0); Alkaline Phosphatase 80 U/L (38-126); Blood Urea Nitrogen 8 mg/dl (7-17); Calcium 8.3 mg/dl (8.4-10.2); Carbon Dioxide 27 mmol/L (22-30); Chloride 105 mmol/L (98-107); Estimated Creatinine Clearance 120 ml/min; Glucose 97 mg/dl (70-99); Magnesium 2.1 mg/dl (1.6-2.3); Potassium 3.6 mmol/L (3.5-5.1); Sodium 136 mmol/L (135-145); Total Protein 6.5 g/dl (6.3-8.2); eGFR > 60.00
[2025-04-18 07:37] VITALS: BP 110/63
[2025-04-18] MEDS: NSS (PRESERVATIVE FREE) 10 ML IV (08:44)
[2025-04-18] MEDS: PROTONIX IV 40 MG IV (08:45)
[2025-04-18] MEDS: TORADOL 15 MG IV (08:53)
--- NOTE | 2025-04-18 09:09 | W.PN.HOSP.TC ---
Today's Communication/Plan
-
advance diet per surgical recommendation
Assessment / Plan
Assessment / Plan
44-year-old woman complaining of severe upper abdominal pain that started in a.m of admit. When she has had upper abdominal pain in the past usually responds to Pepto-Bismol or Tums, this time it did not. She reports nausea without vomiting she
denies fever, chills, chest pain, palpitations, cough, shortness of breath, diarrhea, urinary symptoms.
ABD US IMPRESSION:
Cholelithiasis.
No gallbladder wall thickening or findings to suggest intrahepatic biliary tract dilatation.
Mildly enlarged common bile duct.
Negative sonographic Frankel's sign.
Mid to distal abdominal aorta significantly obscured, most likely by overlying bowel gas.
Pelvis/ABD CT:
Small gallstone seen within the gallbladder on concurrent ultrasound not well appreciated on this study.
Gallbladder wall at least top normal.
No findings to suggest intrahepatic biliary tract dilatation.
Mild extrahepatic biliary tract dilatation enlargement, common bile duct measuring 0.7-0.8 cm without findings to confirm radiopaque calculus.
Suggest correlation with LFTs. Consider MRI/ MRCP for more complete evaluation.
Bilateral ovarian cysts, most likely follicles, largest in the right ovary measuring approximately 3 cm.
Post surgical report:
Procedure Performed: Laparoscopic cholecystectomy with IOC, modifier 22 for fatty liver disease
Anesthesia Type: General
Specimen / Cultures:
1. Gallbladder
Estimated Blood Loss:
11 cc
Complications: None
Operative Findings:
1. Inflamed and edematous GB, thickened wall, hydropic bile, acute on chronic inflammation, moderate fatty liver disease
2. Critical view
3. IOC with several small obstructive stones in distal CBD, flushed through and non-obstructive after glucagon, one small remaining
4. Artery clips, duct with levy load stapler
1. Severe upper Abd pain - likely gall bladder, WBC today 13.6
Abdominal ultrasound showed cholelithiasis, no gallbladder wall thickening or findings to suggest intrahepatic biliary tract dilatation. �
Mildly enlarged common bile duct. �
CT abdomen pelvis showed mild extrahepatic biliary tract dilatation, common bile duct measuring 0.7 to 0.8 cm without calculus.
Patient going went to OR yesterday. Plan per surgery:
POD #1 lap margoth with IOC demonstrating choledocholithiasis, flushed through and non-obstructive after glucagon, one small remaining
Mild transaminitis, bilirubin wnl
Leukocytosis present
Plan:
Advance to LFD
c/w IV abx
Check CMP in am
If pain increases with diet or LFT's trending up, plan EUS. D/W GI during am rounds
Analgesics prn
OOB/Ambulate
Lovenox/scds for vte ppx
lovenox for DVTp
Full code
Anticipated Discharge: 24 - 48 hours
Subjective/Interval History
-
Date of Service: April 18, 2025
Feels better. Breakfast ordered.
Objective Data
-
Labs:
Laboratory Results
04/18/25
05:34
WBC 13.6 H
Hgb 9.9 L
Hct 31.8 L
Plt Count 229
Sodium 136
Potassium 3.6
Chloride 105
Carbon Dioxide 27
BUN 8
Creatinine 0.6
Glucose 97
Calcium 8.3 L
Total Bilirubin 1.0
AST 108 H
ALT 85 H
Alkaline Phosphatase 80
Vital Signs:
Vital Signs
Temp Pulse Resp BP Pulse Ox
98.7 F 68 16 110/63 97
04/18/25 07:37 04/18/25 07:37 04/18/25 07:37 04/18/25 07:37 04/18/25 07:37
I&O
11/15/25 11/16/25 11/17/25
06:59 06:59 06:59
Intake Total 700 / 700 200 / 200
Balance 700 / 700 200 / 200
Review of Systems
-
History Source: Patient
All other systems: Reviewed and negative
Physical Exam
-
General: Well Developed, Well Nourished, No Apparent Distress, Comfortable and Conversant
HEENT: Normocephalic, Atraumatic, Moist Mucous Membranes, Nose Appears Normal and Ears Appear Normal
Respiratory: Clear to Auscultation
Cardiac: Regular Rhythm and S1/S2
GI: Soft, Nontender and Nondistended
Musculoskeletal: No Clubbing, No Cyanosis and No Edema
Skin: Warm and Dry
Neuro: Awake, Alert, Oriented and AO x 3
Psych: Calm
Data Reviewed
-
Labs: Labs Reviewed by me
--- NOTE | 2025-04-18 09:09 | W.PN.GS2 ---
Addendum entered and electronically signed by Maciej Almaraz MD 04/18/25 09:33:
Patient seen and examined.
Reports incisional and RUQ abdominal pain. No nausea or vomiting. Afebrile. Minimal ambulation. Voiding.
Gen: NAD
Abd: soft, tender to palpation in epigastrium and RUQ, ND, non-peritoneal, incisions c/d/i - no erythema, ecchymosis or drainage
Patient is a 44 yo F presenting with acute cholecystitis with choledocholithiasis
POD #1 lap margoth with IOC demonstrating choledocholithiasis, flushed through and non-obstructive after glucagon, one small remaining
Mild transaminitis, bilirubin wnl
Leukocytosis present
Plan:
-- Advance to LFD
-- Abx: Zosyn
-- Check CMP in am
-- If pain increases with diet or LFT's trending up, plan EUS. D/W GI during am rounds
-- Pain control: Tylenol, Toradol, Oxycodone
-- OOB/Ambulate
-- DVT: Lovenox/SCDs
Original Note:
Today's Communication / Plan
-
LFD, labs in am
Assessment / Plan
-
44 yo female presenting with acute cholecystitis with choledocholithiasis
POD #1 lap margoth with IOC demonstrating choledocholithiasis, flushed through and non-obstructive after glucagon, one small remaining
Mild transaminitis, bilirubin wnl
Leukocytosis present
Plan:
Advance to LFD
c/w IV abx
Check CMP in am
If pain increases with diet or LFT's trending up, plan EUS. D/W GI during am rounds
Analgesics prn
OOB/Ambulate
Lovenox/scds for vte ppx
Subjective Data
-
Date of Service: April 18, 2025
Pt seen and examined at bedside with Dr. Almaraz. Denies n/v. Sore to upper abdominal incision. Passing flatus.
Objective Data
-
Intake and Output
04/17/25 04/18/25 04/19/25
06:59 06:59 06:59
Intake Total 700 / 700 200 / 200
Balance 700 / 700 200 / 200
Intake:
IV fluids (Total) 700 / 700 100 / 100
Normosol 100 / 100
IV piggybacks 100 / 100
Other:
Number of approximated MODERATE 1
amounts of urine
Number of approximated LARGE 1
amounts of urine
Vital Signs
Temp Pulse Resp BP Pulse Ox
98.7 F 68 16 110/63 97
04/18/25 07:37 04/18/25 07:37 04/18/25 07:37 04/18/25 07:37 04/18/25 07:37
Lab Results
04/18/25 05:34
04/18/25 05:34
Calcium 8.3 mg/dl (8.4-10.2) L 04/18/25 05:34
Magnesium 2.1 mg/dl (1.6-2.3) 04/18/25 05:34
Total Bilirubin 1.0 mg/dl (0.2-1.3) 04/18/25 05:34
AST 108 U/L (14-36) H 04/18/25 05:34
ALT 85 U/L (0-35) H 04/18/25 05:34
Alkaline Phosphatase 80 U/L (38-126) 04/18/25 05:34
Total Protein 6.5 g/dl (6.3-8.2) 04/18/25 05:34
Albumin 3.5 g/dl (3.5-5.0) 04/18/25 05:34
Physical Exam
-
NAD
ABD soft, incisional tenderness (expected), ND
Incisions well approximated with intact glue
[2025-04-18 11:17] VITALS: BP 89/54
[2025-04-18 15:07] VITALS: BP 112/62
[2025-04-18] MEDS: FLUSH (NSS) 2 FLUSH IV (16:28)
[2025-04-18] MEDS: LOVENOX 40 MG SC (18:28)
[2025-04-18 23:00] VITALS: BP 112/62
[2025-04-19] VITALS (15 sets, daily range): BP systolic 96–130; BP diastolic 56–75
[2025-04-19] MEDS: TYLENOL 1000 MG PO (00:49)
[2025-04-19] MEDS: ZOSYN 50 IV ×4 (04:41→22:42)
--- NOTE | 2025-04-19 05:59 | W.PN.GI.CBS2 ---
Today's Communication / Plan
-
Keep NPO for EUS with possible ERCP later this afternoon with Dr. Garcia. See rest of care as outlined below.
Assessment / Plan
-
Pt is a 44yo with hx prior appe, renal stones, ovarian cyst, anemia, pre DM, and recurrent abdominal pain. In 2022 Pt was noted + H pylori and treated with Lansoprazole/Clarithromycin/amoxicillin with several repeat breath testing neg last testing
in 01/2025. She now presents with worsening abdominal pain. She is noted with WBC up to 11,200, hbg 10.5, with normal LFT's and lipase. Imaging on admission with US noted cholelithiasis mildly enlarged CBD, no thickening, neg barrera sign, CT A/p
with IV and oral with small gallstones in gallbladder not seen on CT, GB wall top normal. no intrahepatic ductal dilatation but mild extrahepatic biliary dilatation with CBD 0.7-0.8cm without stone. b/l ovarian cysts. In review with patient she
admits to intermittent pain. 04/16 was worse pain after eating pancakes and chocolate rating 10/10 with nausea and vomiting prompting admission. Pain 0/10 after admission. . She admits to pain with wrap around to back and left shoulder. Admits
to rare NSAID use. No anticoagulation use. No wt loss or wt loss medication use. T max 99.1 after admission.
#Acute Calculous Cholecystitis w/ Choledocholithiasis
#Positive IOC resolved with flushing with one small stone/debris remaining
#Mildly Elevated Transaminases
#Leukocytosis
Impression: Patient presenting with epigastric pain and underwent lap margoth with IOC on 04/16/25 and found to have acute calculous cholecystitis with choledocholithiasis. IOC revealed small obstructing stones s/p flushing and glucagon with partial
clearance with one small, non-obstructing stone remaining. Clinically, she reports resolution of her previous abdominal pain and having mild discomfort although to be expected around her incisions. Slight bump in transaminases and likely from
post-cautery from cholecystectomy without other labs to suggest biliary obstruction and normal T Bili. Would consider EUS for further evaluation given previous IOC with tiny stone/sludge versus air bubble as LFTs continue to remain normal.
Previous cholangiogram 04/17: Small filling defect in the distal common duct is seen either stone or air bubble. Contrast passes readily into the duodenum
Recommendations:
- Keep NPO
- Trend LFTs q daily- improving
- Plan for EUS +/- ERCP today, 04/19/25, with Dr. Garcia given previous (+) IOC for further evaluation
- Continue multi-modal pain control and IV anti-emetics PRN
- Discussed with surgery this AM
- Rest of ongoing care as per primary team
GI will continue to follow, please call with any questions or concerns.
Subjective
Subjective
Date of Service: April 19, 2025
- Previous cholangiogram 04/17: Small filling defect in the distal common duct is seen either stone or air bubble. Contrast passes readily into the duodenum
- Transaminases improved with normal T Bili, otherwise no acute events overnight
Still with ongoing abdominal pain but mainly from incisions. Denies any nausea or vomiting. Previously tolerated diet last evening although still with occasional discomfort. Discussed pursuing EUS with potential ERCP this AM.
Objective
Data Reviewed
Laboratory Data:
Laboratory Results
Magnesium 2.1 mg/dl (1.6-2.3) 04/18/25 05:34
Total Bilirubin 1.0 mg/dl (0.2-1.3) 04/18/25 05:34
AST 108 U/L (14-36) H 04/18/25 05:34
ALT 85 U/L (0-35) H 04/18/25 05:34
Alkaline Phosphatase 80 U/L (38-126) 04/18/25 05:34
Lipase 81 U/L (23-300) 04/16/25 14:26
Vital Signs and I&O:
Vital Signs
Temp Pulse Resp BP Pulse Ox
99.3 F 70 16 112/62 99
04/18/25 23:00 04/18/25 23:00 04/18/25 23:00 04/18/25 23:00 04/18/25 23:00
I&O
04/17/25 04/18/25 04/19/25
06:59 06:59 06:59
Intake Total 700 / 700 200 / 200 1080 / 1080
Balance 700 / 700 200 / 200 1080 / 1080
Physical Exam
Physical Exam
HEENT: Anicteric and Moist mucous membranes
Pulmonary: Other (Normal WOB on room air)
GI: Soft, Non Distended, Tender (Mild to moderate TTP in RUQ) and Other (Incisions with glue, c/d/i)
Extremities: No Edema and Warm
Neuro: Non Focal
[2025-04-19 06:59] LABS: Hematocrit 30.2 % (37.0-47.0); Hemoglobin 9.2 g/dL (12.0-16.0); Mean Corp Hgb Conc. 30.5 g/dL (33.0-37.0); Mean Corpuscular Volume 86.8 fL (81.0-99.0); Platelet Count 191 10^3/uL (130-400); Red Cell Dist. Width 15.5 % (11.5-14.5)
[2025-04-19 07:22] LABS: ALT (SGPT) 67 U/L (0-35); AST (SGOT) 61 U/L (14-36); Albumin 3.4 g/dl (3.5-5.0); Alkaline Phosphatase 69 U/L (38-126); Blood Urea Nitrogen 13 mg/dl (7-17); Calcium 8.2 mg/dl (8.4-10.2); Carbon Dioxide 30 mmol/L (22-30); Chloride 104 mmol/L (98-107); Estimated Creatinine Clearance 103 ml/min; Glucose 86 mg/dl (70-99); Magnesium 2.1 mg/dl (1.6-2.3); Potassium 3.4 mmol/L (3.5-5.1); Sodium 139 mmol/L (135-145); Total Protein 6.1 g/dl (6.3-8.2); eGFR > 60.00
[2025-04-19] MEDS: NSS (PRESERVATIVE FREE) 10 ML IV (08:13)
[2025-04-19] MEDS: PROTONIX IV 40 MG IV (08:13)
--- NOTE | 2025-04-19 10:10 | W.PN.GS2 ---
Today's Communication / Plan
-
EUS
Assessment / Plan
-
44 yo female presenting with acute cholecystitis with choledocholithiasis
POD #2 lap margoth with IOC demonstrating choledocholithiasis, flushed through and non-obstructive after glucagon, one small stone remaining
Mild transaminitis, bilirubin wnl
Leukocytosis resolved
Plan:
NPO for EUS with gastroenterology
c/w IV zosyn until post procedure
Analgesics prn
OOB/Ambulate
Lovenox/scds for vte ppx
D/W pt care with Dr. Hernandez on unit during AM rounds
Subjective Data
-
Date of Service: April 19, 2025
Pt seen and examined at bedside with Dr. Burgos. Denies n/v. Epigastric pain radiating into her back. Incisional pain with movement. Pasisng flatus.
Objective Data
-
Intake and Output
04/18/25 04/19/25 04/20/25
06:59 06:59 06:59
Intake Total 200 / 200 1080 / 1080
Balance 200 / 200 1080 / 1080
Intake:
Oral fluids 880 / 880
IV fluids (Total) 100 / 100
Normosol 100 / 100
IV piggybacks 100 / 100 200 / 200
Other:
Number of approximated MODERATE 3
amounts of urine
Number of approximated LARGE 1
amounts of urine
Vital Signs
Temp Pulse Resp BP Pulse Ox
98.9 F 60 16 102/56 97
04/19/25 07:00 04/19/25 07:00 04/19/25 07:00 04/19/25 07:00 04/19/25 07:00
Lab Results
04/19/25 06:15
04/19/25 06:15
Calcium 8.2 mg/dl (8.4-10.2) L 04/19/25 06:15
Magnesium 2.1 mg/dl (1.6-2.3) 04/19/25 06:15
Total Bilirubin 0.7 mg/dl (0.2-1.3) 04/19/25 06:15
AST 61 U/L (14-36) H 04/19/25 06:15
ALT 67 U/L (0-35) H 04/19/25 06:15
Alkaline Phosphatase 69 U/L (38-126) 04/19/25 06:15
Total Protein 6.1 g/dl (6.3-8.2) L 04/19/25 06:15
Albumin 3.4 g/dl (3.5-5.0) L 04/19/25 06:15
Physical Exam
-
NAD
ABD soft, epigastric and incisional tenderness, ND
Incisions well approximated with intact glue
--- NOTE | 2025-04-19 13:34 | W.PN.HOSP.TC ---
Today's Communication/Plan
-
ERCP with GI today
Assessment / Plan
Assessment / Plan
44F p/w abdominal pain, found to have cholelithiasis.
Choledocholithiasis
Abdominal ultrasound showed cholelithiasis, no gallbladder wall thickening or findings to suggest intrahepatic biliary tract dilatation. �
CT abdomen pelvis showed mild extrahepatic biliary tract dilatation, common bile duct measuring 0.7 to 0.8 cm without calculus.
S/p lap margoth. IOC demonstrating choledocholithiasis, flushed through and non-obstructive after glucagon, one small stone remaining
GS following
GI following for elevated LFTs
EUS/ERCP today with GI
N.p.o.
IV Zosyn
Analgesics prn
Anemia
Normocytic.
Hgb 9.2 down from 11.9 on admit
EBL on surgery report only 11 cc
Notably pus RBC/blood on UA. Will repeat UA
Continue to monitor, trend Hgb. Transfuse if Hgb <7
Hypokalemia
Replete with oral K
DVT PPx
Lovenox
Full code
Anticipated Discharge: 24 - 48 hours
Subjective/Interval History
-
Date of Service: April 19, 2025
Patient denies any nausea/vomiting at this time. Notes some abdominal pain when she touches her abdomen or when she moves too much.
Objective Data
-
Labs:
Laboratory Results
04/19/25
06:15
WBC 7.5
Hgb 9.2 L
Hct 30.2 L
Plt Count 191
Sodium 139
Potassium 3.4 L
Chloride 104
Carbon Dioxide 30
BUN 13
Creatinine 0.7
Glucose 86
Calcium 8.2 L
Total Bilirubin 0.7
AST 61 H
ALT 67 H
Alkaline Phosphatase 69
Vital Signs:
Vital Signs
Temp Pulse Resp BP Pulse Ox
98.9 F 60 16 102/56 97
04/19/25 07:00 04/19/25 07:00 04/19/25 07:00 04/19/25 07:00 04/19/25 07:00
I&O
04/18/25 04/19/25 04/20/25
06:59 06:59 06:59
Intake Total 200 / 200 1080 / 1080
Balance 200 / 200 1080 / 1080
Review of Systems
-
All other systems: Reviewed and negative
Physical Exam
-
General: No Apparent Distress
HEENT: Moist Mucous Membranes, Anicteric and PERRLA
Respiratory: Clear to Auscultation; Negative Wheezes, Rales or Rhonchi
Cardiac: Regular Rhythm and S1/S2; Negative Murmur, Rub or Gallop
GI: Soft, Nondistended, Normal Bowel Sounds and Tender (Mildly tender around surgical sites)
Musculoskeletal: No Edema
Skin: Warm and Dry; Negative Rash, Ulcers or Lesions
Neuro: Awake and AO x 3
Hematologic / Lymphatic: No Lymphadenopathy
Psych: Calm
Data Reviewed
-
CT Scan: Report Reviewed by me
Labs: Labs Reviewed by me and Discussed with Patient
--- NOTE | 2025-04-19 14:52 | CM ---
CM following re: discharge planning.
Reviewed pt's chart.
Pt is POD #2 lap margoth with IOC demonstrating choledocholithiasis, continue supportive care.
Pt resides with spouse/Alfonso and 3 children (5, 14, 16 y/o) in an apartment and pt is independent in all areas [employer], known to [facility].
[facility]SI following.
D/C plan: home with family.
[2025-04-19] MEDS: ZOFRAN 4 MG IV (15:51)
[2025-04-19] MEDS: COMPAZINE 5 MG IV (16:13)
[2025-04-19] MEDS: TORADOL 15 MG IV (17:07)
[2025-04-19] MEDS: LOVENOX 40 MG SC (17:33)
[2025-04-19] MEDS: KLOR-CON 20 MEQ PO (17:33)
[2025-04-19 22:22] LABS: Urine Character Clear (Clear)
[2025-04-19 22:34] LABS: Urine Red Blood Cell 21-25 /HPF (0-2); Urine White Cell 0-2 /HPF (0-5)
[2025-04-20] MEDS: TYLENOL 1000 MG PO ×3 (02:20→20:29)
[2025-04-20 03:33] VITALS: BP 122/75
[2025-04-20] MEDS: ZOSYN 50 IV ×4 (03:54→21:19)
[2025-04-20] MEDS: ROXICODONE 5 MG PO (04:49)
--- NOTE | 2025-04-20 05:41 | W.PN.GI.CBS2 ---
Today's Communication / Plan
-
Continue CLD and IVF given recent post-ERCP pancreatitis. Slight bump in LFTs and likely from contrast injection. Continue ongoing supportive care with pain control and anti-emetics PRN. Rest of care as outlined below.
Assessment / Plan
-
Pt is a 44yo with hx prior appe, renal stones, ovarian cyst, anemia, pre DM, and recurrent abdominal pain. In 2022 Pt was noted + H pylori and treated with Lansoprazole/Clarithromycin/amoxicillin with several repeat breath testing neg last testing
in 01/2025. She now presents with worsening abdominal pain. She is noted with WBC up to 11,200, hbg 10.5, with normal LFT's and lipase. Imaging on admission with US noted cholelithiasis mildly enlarged CBD, no thickening, neg barrera sign, CT A/p
with IV and oral with small gallstones in gallbladder not seen on CT, GB wall top normal. no intrahepatic ductal dilatation but mild extrahepatic biliary dilatation with CBD 0.7-0.8cm without stone. b/l ovarian cysts. In review with patient she
admits to intermittent pain. 04/16 was worse pain after eating pancakes and chocolate rating 10/10 with nausea and vomiting prompting admission. Pain 0/10 after admission. . She admits to pain with wrap around to back and left shoulder. Admits
to rare NSAID use. No anticoagulation use. No wt loss or wt loss medication use. T max 99.1 after admission.
#Acute Calculous Cholecystitis w/ Choledocholithiasis
#Positive IOC resolved with flushing with one small stone/debris remaining
#Mildly Elevated Transaminases
#Leukocytosis
Patient presenting with epigastric pain and underwent lap margoth with IOC on 04/16/25 and found to have acute calculous cholecystitis with choledocholithiasis. IOC revealed small obstructing stones s/p flushing and glucagon with partial clearance
with one small, non-obstructing stone remaining. Previous cholangiogram 04/17: Small filling defect in the distal common duct is seen either stone or air bubble. Contrast passes readily into the duodenum. S/p EUS/ERCP 04/19/25: Three stones
visualized in the cystic duct with biliary ductal dilation, choledocholithiasis was found managed with biliary sphincterotomy and balloon extraction.
Now with worsening epigastric pain after recent ERCP with elevated lipase > 4000s consistent with post-ERCP pancreatitis. Suspect slight bump in LFTs related to contrast injection during ERCP. For now, would continue IVF, CLD along with ongoing
supportive care pending recovery of post-ERCP pancreatitis.
Recommendations:
- Okay for CLD, defer from advancing today
- Restart IVF given post-ERCP pancreatitis
- Trend LFTs q daily and suspect slight bump related to prior contrast injection
- Continue multi-modal pain control and IV anti-emetics PRN
- Discussed with surgery this AM
- Rest of ongoing care as per primary team
GI will continue to follow, please call with any questions or concerns.
Subjective
Subjective
Date of Service: April 20, 2025
- S/p EUS/ERCP 04/19/25: Three stones visualized in the cystic duct with biliary ductal dilation, choledocholithiasis was found managed with biliary sphincterotomy and balloon extraction
- Worsening pain overnight and this AM, found to have bump in LFTs and T Bili 0.7 -> 1.8 along with elevated lipase > 4000
Feeling ongoing, new onset epigastric pain after ERCP. Mild nausea but denies any vomiting. No other fevers, chills or other constitutional symptoms.
Objective
Data Reviewed
Laboratory Data:
Laboratory Results
Magnesium 2.1 mg/dl (1.6-2.3) 04/19/25 06:15
Total Bilirubin 0.7 mg/dl (0.2-1.3) 04/19/25 06:15
AST 61 U/L (14-36) H 04/19/25 06:15
ALT 67 U/L (0-35) H 04/19/25 06:15
Alkaline Phosphatase 69 U/L (38-126) 04/19/25 06:15
Lipase 81 U/L (23-300) 04/16/25 14:26
Vital Signs and I&O:
Vital Signs
Temp Pulse Resp BP Pulse Ox
98.1 F 74 20 122/75 93
04/20/25 03:33 04/20/25 03:33 04/20/25 03:33 04/20/25 03:33 04/20/25 03:33
I&O
04/18/25 04/19/25 04/20/25
06:59 06:59 06:59
Intake Total 200 / 200 1080 / [employer] 1060 / 1060
Output Total
Balance 200 / 200 1080 / [employer] 1059 / 1059
Physical Exam
Physical Exam
HEENT: Anicteric and Moist mucous membranes
Pulmonary: Other (Normal WOB on room air)
GI: Soft, Non Distended and Non Tender
Extremities: Warm
Neuro: Non Focal
[2025-04-20 07:00] VITALS: BP 127/70
--- NOTE | 2025-04-20 07:21 | W.PN.GS2 ---
Today's Communication / Plan
-
-- DC instructions updated
-- Please call with any questions or concerns
Assessment / Plan
-
44 yo female presenting with acute cholecystitis with choledocholithiasis
POD #3 lap margoth with IOC demonstrating choledocholithiasis, flushed through and non-obstructive after glucagon, one small stone remaining
AVSS
Repeat labs pending
Post ERCP pain, likely related to pancreatitis, differential includes gastritis and ulcer disease though less likely given EGD findings. No concerns from a surgical perspective - Hb stable, cholang yesterday with no cystic duct stump leak or CBD
injury. GI consult noted further care per hospitalist and GI.
Plan:
-- Diet per GI
-- pain control: Tylenol, Toradol (at discretion of GI), Oxycodone, IV Dilaudid PRN
-- OOB/Ambulate
-- DVT: Lovenox/SCDs
-- DC instructions updated
-- Please call with any questions or concerns
D/W pt care with Dr. Hernandez on unit during AM rounds. Further care per hospitalist and GI.
Subjective Data
-
Date of Service: April 20, 2025
Reports epigastric and some more central abdominal pain. No nausea or vomiting. Afebrile.
Objective Data
-
Intake and Output
04/19/25 04/20/25 04/21/25
06:59 06:59 06:59
Intake Total 1080 / 1080 1060 / 1060
Output Total
Balance 1080 / 1080 1059 / 1059
Intake:
Oral fluids 880 / 880 460 / 460
IV fluids (Total) 450 / 450
LR 400 / 400
IV piggybacks 200 / 200 150 / 150
Output:
Urine, Voided
Other:
Number of approximated MODERATE 3 2
amounts of urine
Number of approximated LARGE 1
amounts of urine
Vital Signs
Temp Pulse Resp BP Pulse Ox
98.1 F 74 20 122/75 93
04/20/25 03:33 04/20/25 03:33 04/20/25 03:33 04/20/25 03:33 04/20/25 03:33
Calcium 8.2 mg/dl (8.4-10.2) L 04/19/25 06:15
Magnesium 2.1 mg/dl (1.6-2.3) 04/19/25 06:15
Total Bilirubin 0.7 mg/dl (0.2-1.3) 04/19/25 06:15
AST 61 U/L (14-36) H 04/19/25 06:15
ALT 67 U/L (0-35) H 04/19/25 06:15
Alkaline Phosphatase 69 U/L (38-126) 04/19/25 06:15
Total Protein 6.1 g/dl (6.3-8.2) L 04/19/25 06:15
Albumin 3.4 g/dl (3.5-5.0) L 04/19/25 06:15
Physical Exam
-
Gen: NAD
Abd: soft, tender mostly in epigastrium, ND, non-peritoneal, incisions c/d/i - no erythema, ecchymosis or drainage
Patient has a hewitt catheter: No
Patient has a central line: No
[2025-04-20 07:26] LABS: Hematocrit 33.5 % (37.0-47.0); Hemoglobin 10.5 g/dL (12.0-16.0); Mean Corp Hgb Conc. 31.3 g/dL (33.0-37.0); Mean Corpuscular Volume 83.8 fL (81.0-99.0); Nucleated Red Blood Cells % 0 %; Platelet Count 273 10^3/uL (130-400); Red Cell Dist. Width 14.7 % (11.5-14.5)
[2025-04-20 08:00] LABS: ALT (SGPT) 365 U/L (0-35); AST (SGOT) 589 U/L (14-36); Albumin 3.7 g/dl (3.5-5.0); Alkaline Phosphatase 219 U/L (38-126); Blood Urea Nitrogen 11 mg/dl (7-17); Calcium 8.7 mg/dl (8.4-10.2); Carbon Dioxide 28 mmol/L (22-30); Chloride 101 mmol/L (98-107); Estimated Creatinine Clearance 120 ml/min; Glucose 81 mg/dl (70-99); Potassium 3.8 mmol/L (3.5-5.1); Sodium 136 mmol/L (135-145); Total Protein 6.6 g/dl (6.3-8.2); eGFR > 60.00
[2025-04-20 08:12] LABS: Lipase > 4000 U/L (23-300)
[2025-04-20] MEDS: NSS 1000 IV ×3 (08:29→21:19)
[2025-04-20] MEDS: PROTONIX IV 40 MG IV (08:30)
[2025-04-20] MEDS: NSS (PRESERVATIVE FREE) 10 ML IV (08:30)
[2025-04-20] MEDS: TORADOL 15 MG IV (08:36)
[2025-04-20 11:00] VITALS: BP 118/61
--- NOTE | 2025-04-20 14:45 | CM ---
CM following re: discharge planning.
Reviewed pt's chart.
Pt is POD #3 lap margoth with IOC demonstrating choledocholithiasis, continue supportive care.
Pt resides with spouse/Alfonso and 3 children (5, 14, 16 y/o) in an apartment and pt is independent in all areas [employer], known to [facility].
[facility]SI following.
D/C plan: home with family.
[2025-04-20 14:59] VITALS: BP 122/72
--- NOTE | 2025-04-20 15:27 | W.PN.HOSP.TC ---
Today's Communication/Plan
-
IV pain medicine, IVF and bowel rest for post ERCP pancreatitis
Assessment / Plan
Assessment / Plan
44F p/w abdominal pain, found to have cholelithiasis.
Acute pancreatitis
Post ERCP acute pancreatitis.
Lipase elevated
IV fluids
CLD per GI
IV Dilaudid prn, antiemetics prn
Choledocholithiasis
Abdominal ultrasound showed cholelithiasis, no gallbladder wall thickening or findings to suggest intrahepatic biliary tract dilatation. �
CT abdomen pelvis showed mild extrahepatic biliary tract dilatation, common bile duct measuring 0.7 to 0.8 cm without calculus.
S/p lap margoth. IOC demonstrating choledocholithiasis, flushed through and non-obstructive after glucagon, one small stone remaining
GS following
GI following for elevated LFTs
EUS/ERCP performed with GI showed 3 stones in the cystic duct with biliary ductal dilatation, choledocholithiasis, s/p biliary sphincterotomy and balloon extraction
Her acute transaminitis is likely due to the contrast injection per GI note.
IV Zosyn
Analgesics prn
Anemia
Normocytic.
Hgb 9.2 down from 11.9 on admit
EBL on surgery report only 11 cc
Notably pus RBC/blood on UA. Still present on repeat UA
Continue to monitor, trend Hgb. Transfuse if Hgb <7
Hematuria
Persistent on repeat UA
CT does not show abnormality/stone of the kidney or bladder
Would refer to urology/urogyn for further workup
Hypokalemia
Repleted with oral K
DVT PPx
Lovenox
Full code
Anticipated Discharge: 24 - 48 hours
Subjective/Interval History
-
Date of Service: April 20, 2025
Patient complained of nausea and abdominal pain that was different from her admission pain
Objective Data
-
Labs:
Laboratory Results
04/20/25
06:31
WBC 10.2
Hgb 10.5 L
Hct 33.5 L
Plt Count 273 D
Sodium 136
Potassium 3.8
Chloride 101
Carbon Dioxide 28
BUN 11
Creatinine 0.6
Glucose 81
Calcium 8.7
Total Bilirubin 1.8 H D
AST 589 H*
ALT 365 H
Alkaline Phosphatase 219 H
Vital Signs:
Vital Signs
Temp Pulse Resp BP Pulse Ox
97.9 F 64 16 122/72 98
04/20/25 14:59 04/20/25 14:59 04/20/25 14:59 04/20/25 14:59 04/20/25 14:59
I&O
04/19/25 04/20/25 04/21/25
06:59 06:59 06:59
Intake Total 1080 / 1080 1060 / 1060
Output Total
Balance 1080 / 1080 1059 / 1059
Review of Systems
-
All other systems: Reviewed and negative
Physical Exam
-
General: No Apparent Distress
HEENT: Moist Mucous Membranes, Anicteric and PERRLA
Respiratory: Clear to Auscultation; Negative Wheezes, Rales or Rhonchi
Cardiac: Regular Rhythm and S1/S2; Negative Murmur, Rub or Gallop
GI: Soft, Nondistended, Normal Bowel Sounds and Tender (Mildly tender around surgical sites)
Musculoskeletal: No Edema
Skin: Warm and Dry; Negative Rash, Ulcers or Lesions
Neuro: Awake and AO x 3
Hematologic / Lymphatic: No Lymphadenopathy
Psych: Calm
Data Reviewed
-
CT Scan: Report Reviewed by me
Labs: Labs Reviewed by me, Discussed with Physician and Discussed with Patient
--- NOTE | 2025-04-20 16:39 | W.CON.NEPH ---
Consultation
-
Date/Time Consultation Requested: 04/20/2025 4 PM
Date/Time Consultation Performed: 04/20/2025 4 PM
Requesting Provider: Dr. Mills
Performing Provider: Dr. Winkler
Reason for Consultation: Hematuria
Medical History
-
Chief Complaint: Abdominal pain
History of Present Illness:
This is a 44-year-old female who has no significant past medical history has known other than that of appendectomy and in the past. She was admitted to the hospital late 04/16/2025 with complaints of worsening upper abdominal pain after
eating which did not respond to Pepto-Bismol or Tums. She also had significant nausea. She denies any urinary symptoms. Hospitalization was remarkable for identification of obstructive cholelithiasis and she ultimately underwent laparoscopic
cholecystectomy on April 17, 2025 with no complications. We are asked to assist with management of abnormal urinalysis with microhematuria and proteinuria.
Past Medical History
Appendectomy,
Past Medical History: None
Social History
Tobacco: Non-Smoker
Alcohol: None
Family History
Family History: Not Pertinent
Allergies / Home Medications
Allergy/AdvReac Type Severity Reaction Status Date / Time
No Known Allergies Allergy Verified 05/18/16 11:43
�Medication �Instructions �Recorded �Confirmed �Type
oxycodone 5 mg tablet 5 mg PO Q4HPRN PRN 04/20/25 Rx
breakthrough/severe pain #10 tabs
Review of Systems
-
Abdominal pain better, no urinary symptoms
All other systems: Negative unless noted
Physical Exam
Vital Signs
Vital Signs
Temp Pulse Resp BP Pulse Ox
97.9 F 64 16 122/72 98
04/20/25 14:59 04/20/25 14:59 04/20/25 14:59 04/20/25 14:59 04/20/25 14:59
Lab Results
WBC 10.2 10^3/uL (4.8-10.8) 04/20/25:
RBC 4.00 10^6/uL (4.20-5.40) L 04/20/25:
Hgb 10.5 g/dL (12.0-16.0) L 04/20/25
Hct 33.5 % (37.0-47.0) L 04/20/25:
Plt Count 273 10^3/uL (130-400) D 04/20/25
Sodium 136 mmol/L (135-145) 04/20/25
Potassium 3.8 mmol/L (3.5-5.1) 04/20/25
Chloride 101 mmol/L (98-107) 04/20/25
Carbon Dioxide 28 mmol/L (22-30) 04/20/25
BUN 11 mg/dl (7-17) 04/20/25:
Creatinine 0.6 mg/dL (0.6-1.0) 04/20/25
eGFR > 60.00 04/20/25:
Glucose 81 mg/dl (70-99) 04/20/25:
Calcium 8.7 mg/dl (8.4-10.2) 04/20/25
Albumin 3.7 g/dl (3.5-5.0) 04/20/25:
Physical Exam
Patient is awake alert oriented and in no distress. Mood and affect were pleasant, insight and judgment were good. Pupils are equal round and reactive to light, extraocular movements are intact, sclera were anicteric. Hearing was normal, ears and
nose are intact. Oropharynx was clear. Neck was supple with trachea midline and no thyromegaly. Heart was regular rate and rhythm without rubs. Lower extremities without edema. Lungs were clear to auscultation bilaterally and with normal
excursion. Abdomen was soft, nontender, with normal active bowel sounds, and no hepatosplenomegaly. Skin was without rash and with normal turgor.
Data Reviewed
-
CT Scan: Report Reviewed by me (CT abdomen pelvis with IV contrast April 16, 2025 gallstone with extrahepatic biliary tract dilatation)
Ultrasound: Report Reviewed by me (Abdominal ultrasound 04/16/2025 no kidney stones)
Medical Tests (Nuc Med, Echo etc): Report Reviewed by me
Labs: Labs Reviewed by me
Assessment/Plan
-
Assessment
Cholelithiasis status post cholecystectomy laparoscopic
Microhematuria
Proteinuria
Pancreatitis
Plan
I would not workup urinary abnormalities at this time
She should have urinalysis performed when she has recovered from the current hospitalization
Continued microhematuria or proteinuria at that time would be worked up as an outpatient
Continue IV fluids
Please call with questions
[2025-04-20] MEDS: LOVENOX 40 MG SC (17:36)
[2025-04-20 19:15] VITALS: BP 113/58
[2025-04-20 23:02] VITALS: BP 102/53
[2025-04-21] MEDS: TORADOL 15 MG IV ×2 (00:03→09:22)
[2025-04-21] MEDS: NSS 1000 IV ×2 (02:52→08:04)
[2025-04-21 03:25] VITALS: BP 117/66
--- NOTE | 2025-04-21 03:30 | DOWNTIME ---
There was a [employer] Client [employer] Downtime on 04/21/2025 from 0100 to 04/21/2025 at 0255. Downtime documentation of patient's care, including medication administrations, has been reconciled in the electronic record per guidelines. Refer to the
patient's paper chart under the miscellaneous tab to see printed paper medication records and downtime forms.
[2025-04-21] MEDS: ZOSYN 50 IV (03:51)
--- NOTE | 2025-04-21 05:52 | W.PN.GI.CBS2 ---
Today's Communication / Plan
-
Improving abdominal pain, suspect mild-PEP. Advance to low-fat diet and if tolerating reasonable for outpatient follow-up. See rest of care as outlined below.
Assessment / Plan
-
Pt is a 44yo with hx prior appe, renal stones, ovarian cyst, anemia, pre DM, and recurrent abdominal pain. In 2022 Pt was noted + H pylori and treated with Lansoprazole/Clarithromycin/amoxicillin with several repeat breath testing neg last testing
in 01/2025. She now presents with worsening abdominal pain. She is noted with WBC up to 11,200, hbg 10.5, with normal LFT's and lipase. Imaging on admission with US noted cholelithiasis mildly enlarged CBD, no thickening, neg barrera sign, CT A/p
with IV and oral with small gallstones in gallbladder not seen on CT, GB wall top normal. no intrahepatic ductal dilatation but mild extrahepatic biliary dilatation with CBD 0.7-0.8cm without stone. b/l ovarian cysts. In review with patient she
admits to intermittent pain. 04/16 was worse pain after eating pancakes and chocolate rating 10/10 with nausea and vomiting prompting admission. Pain 0/10 after admission. . She admits to pain with wrap around to back and left shoulder. Admits
to rare NSAID use. No anticoagulation use. No wt loss or wt loss medication use. T max 99.1 after admission.
#Acute Calculous Cholecystitis w/ Choledocholithiasis
#Positive IOC resolved with flushing with one small stone/debris remaining
#Post-ERCP Pancreatitis
#Mildly Elevated Transaminases
#Leukocytosis
Patient presenting with epigastric pain and underwent lap margoth with IOC on 04/16/25 and found to have acute calculous cholecystitis with choledocholithiasis. IOC revealed small obstructing stones s/p flushing and glucagon with partial clearance
with one small, non-obstructing stone remaining. Previous cholangiogram 04/17: Small filling defect in the distal common duct is seen either stone or air bubble. Contrast passes readily into the duodenum. S/p EUS/ERCP 04/19/25: Three stones
visualized in the cystic duct with biliary ductal dilation, choledocholithiasis was found managed with biliary sphincterotomy and balloon extraction. Found to have worsening epigastric pain after ERCP with elevated lipase > 4000s consistent with
post-ERCP pancreatitis. Suspect slight bump in LFTs related to contrast injection during ERCP. For now, would continue IVF, CLD along with ongoing supportive care pending recovery of post-ERCP pancreatitis. Fortunately, patient reports improving
symptoms and tolerating CLD without difficulty.
Recommendations:
- Tolerating CLD, may advance diet to LFD
- May stop IVF as tolerating p.o intake
- Trend LFTs q daily and suspect slight bump related to prior contrast injection- now improving
- Continue multi-modal pain control and IV anti-emetics PRN
- Rest of ongoing care as per primary team
If patient is able to tolerate solid food / low-fat diet today, reasonable for outpatient follow-up. GI will continue to follow, please call with any questions or concerns.
Subjective
Subjective
Date of Service: April 21, 2025
- No acute events overnight
Resting comfortably this AM, reports feeling better with improving abdominal pain. Able to tolerate clears without difficulty. No nausea/vomiting. Denies any other fevers, chills, night sweats or other constitutional symptoms.
Objective
Data Reviewed
Laboratory Data:
Laboratory Results
Magnesium 2.1 mg/dl (1.6-2.3) 04/19/25 06:15
Total Bilirubin 1.8 mg/dl (0.2-1.3) H D 04/20/25 06:31
AST 589 U/L (14-36) H* 04/20/25 06:31
ALT 365 U/L (0-35) H 04/20/25 06:31
Alkaline Phosphatase 219 U/L (38-126) H 04/20/25 06:31
Lipase Cancelled 04/20/25 07:21
Vital Signs and I&O:
Vital Signs
Temp Pulse Resp BP Pulse Ox
98.5 F 67 18 117/66 96
04/21/25 03:25 04/21/25 03:25 04/21/25 03:25 04/21/25 03:25 04/21/25 03:25
I&O
04/19/25 04/20/25 04/21/25
06:59 06:59 06:59
Intake Total 1080 / 1080 1060 / 1060 4790 / 4790
Output Total
Balance 1080 / 1080 1059 / 1059 4790 / 4790
Physical Exam
Physical Exam
HEENT: Anicteric and Moist mucous membranes
Pulmonary: Other (Normal WOB on room air)
GI: Soft, Non Distended and Non Tender
Extremities: Warm
Neuro: Non Focal
[2025-04-21 06:37] LABS: Hematocrit 30.8 % (37.0-47.0); Hemoglobin 9.7 g/dL (12.0-16.0); Mean Corp Hgb Conc. 31.5 g/dL (33.0-37.0); Mean Corpuscular Volume 83.5 fL (81.0-99.0); Nucleated Red Blood Cells % 0 %; Platelet Count 234 10^3/uL (130-400); Red Cell Dist. Width 14.8 % (11.5-14.5)
[2025-04-21 06:48] LABS: ALT (SGPT) 236 U/L (0-35); AST (SGOT) 171 U/L (14-36); Albumin 3.3 g/dl (3.5-5.0); Alkaline Phosphatase 166 U/L (38-126); Blood Urea Nitrogen 5 mg/dl (7-17); Calcium 7.8 mg/dl (8.4-10.2); Carbon Dioxide 25 mmol/L (22-30); Chloride 102 mmol/L (98-107); Estimated Creatinine Clearance 120 ml/min; Glucose 67 mg/dl (70-99); Potassium 3.5 mmol/L (3.5-5.1); Sodium 136 mmol/L (135-145); Total Protein 6.0 g/dl (6.3-8.2); eGFR > 60.00
[2025-04-21 07:00] VITALS: BP 116/64
[2025-04-21 08:55] LABS: Reticulocyte Count 2.2 % (0.4-2.8)
[2025-04-21] MEDS: NSS (PRESERVATIVE FREE) 10 ML IV (09:20)
[2025-04-21] MEDS: PROTONIX IV 40 MG IV (09:20)
[2025-04-21] MEDS: NSS IV (09:40)
[2025-04-21 11:35] LABS: LDH 266 U/L (120-246)
[2025-04-21 11:42] LABS: Iron < 20 ug/dl (37-170)
--- NOTE | 2025-04-21 11:44 | CM ---
CM following re: discharge planning.
Reviewed pt's chart.
Pt is POD #4 lap margoth with IOC demonstrating choledocholithiasis, continue supportive care.
Pt resides with spouse/Alfonso and 3 children (5, 14, 16 y/o) in an apartment and pt is independent in all areas [employer], known to [facility].
Discharge order noted. Pt is aware and she started her will transport home.
D/C plan: home with family and follow up with [facility].
[2025-04-21 11:45] LABS: Total Iron Binding Capacity 236 ug/dl (265-497)
[2025-04-21 13:14] LABS: Ferritin 15.7 ng/ml (6.24-137)
[2025-04-21 14:21] VITALS: BP 118/64
--- NOTE | 2025-04-21 15:29 | W.DCSUMMARY ---
Discharge Summary
Discharge Data
Date of Admission: 04/19/25
Date of Discharge: 04/21/25
Total time spent discharging patient (in min): 40
-
Pending Results: Yes (B12, folate)
Hospital Course
Attending physician on day of discharge:
Bernadine Mills MD
Discharge diagnosis:
Acute calculous cholecystitis with choledocholithiasis
Acute post-ERCP pancreatitis
Secondary diagnoses:
Iron deficiency anemia
Microhematuria/proteinuria
Consultations:
GI
General surgery
Nephrology
Procedures:
04/16/2025 Laparoscopic cholecystectomy
04/19/2025 ERCP
Hospital course:
42 2FP/W abdominal pain, nausea. Abdominal ultrasound showed cholelithiasis, no gallbladder wall thickening or findings to suggest intrahepatic biliary tract dilatation. CT abdomen pelvis showed mild extrahepatic biliary tract dilatation, common
bile duct measuring 0.7 to 0.8 cm without calculus. S/p lap margoth. IOC demonstrating choledocholithiasis, flushed through and non-obstructive after glucagon, one small stone remaining. EUS/ERCP performed with GI showed 3 stones in the cystic duct
with biliary ductal dilatation, choledocholithiasis, s/p biliary sphincterotomy and balloon extraction. She was treated with IV Zosyn empirically. She was also given IV fluids. She hadacute transaminitis likely due to the contrast injection,
which improved. She developed increased pain postop, and was found to have elevated lipase consistent with Post ERCP acute pancreatitis. She was treated with IV and oral narcotics for pain. Her diet was slowly advanced as tolerated. She was also
found to be anemic, she reports a history of anemia, she feels likely due to her heavy menstruation, iron panel did show iron deficiency, she was given prescription for oral iron. UA showed microhematuria, proteinuria, ketonuria, nephrology was
consulted, in the setting of acute illness they felt there was no role for further inpatient workup, patient is to have repeat UA as outpatient and and if abnormalities persist, further workup if needed.
Physical exam on discharge:
Gen: NAD
HEENT: PERRLA, EOMI, MMM, neck supple
Cards: RRR, no M/G/R
Resp: Lungs CTAB, no W/R/R
GI: soft, NT/ND/NABS, laparoscopic incisions C/D/I
MSK: No edema
Skin: warm and dry, no rash, ulcer or lesions
Heme: No LAD
Psych: Calm
Neuro: AAOx3
Discharge disposition:
Home
Discharge Plan
-
Patient Disposition: Home (Routine Discharge)
Discharge Diagnosis/Procedures: Laparoscopic cholecystectomy and IOC; ERCP
Diet: As tolerated
Additional Diets: Switch to a low fat diet if you notice loose stools after surgery
Activity: No strenuous activity
Additional Activity: Do not lift over 20lbs for the next 2-3 weeks
Bathing Restrictions: OK to Shower
Blood Work: repeat CBC, LFTs in 1-2 weeks, repeat UA as outpatient
Wound Care: Keep incisions clean and dry. Glue will flake off your incisions on its own over the next 2 weeks, avoid scrubbing or picking off. Stitches will dissolve. Use ice to the abdomen to reduce any bruising or swelling.
Activity Restrictions/Additional Instructions:
Call your surgeon if you have fevers >100.5, nausea with vomiting or worsening pain
Referrals:
Maciej Almaraz MD [Active, Surgical] - in two to four weeks
Kemar Hernandez DO [Active, Gastroenterology] - in one to two weeks
Prescriptions:
New
acetaminophen 325 mg tablet
650 mg PO Q4HPRN PRN (Reason: mild pain) Qty: 1 0RF
ibuprofen 200 mg tablet
400 - 600 mg PO Q6HPRN PRN (Reason: moderate pain) Qty: 1 0RF
oxycodone 5 mg tablet
5 mg PO Q4HPRN PRN (Reason: breakthrough/severe pain) Qty: 10 0RF
oxycodone 5 mg Tablet
5 mg PO Q4HPRN PRN (Reason: severe pain) Qty: 20 0RF
ferrous sulfate 325 mg (65 mg iron) tablet,delayed release (DR/EC)
325 mg PO DAILY Qty: 30 0RF
Discharge Orders:
Discharge Patient (As Directed); Ordered 04/21/25
Ordered By: Brenadine Mills
Discharge Date and Time
Print Language: SLOVAK
[2025-04-21 17:10] LABS: Folate 10.6 ng/ml (2.76-20); Vitamin B12 349 pg/ml (239-931)
== END 2025-04-21 16:08 | disposition home or self-care (01) ==
LOC: SDS 21:58
PROVIDERS: Clinical Nurse Specialist Family Health; Emergency Medicine; Internal Medicine Gastroenterology; Nurse Practitioner; Registered Nurse; ATTENDING PHYSICIAN Internal Medicine; CONSULT PHYSICIAN Student in an Organized Health Care Education/Training Program; CONSULT PHYSICIAN Surgery; EMERGENCY PHYSICIAN Emergency Medicine; OTHER PHYSICIAN Specialist
PROC: BF141ZZ Fluoroscopy of Gallbladder, Bile Ducts and Pancreatic Ducts using Low Osmolar Contrast (ICD-10-PCS; 2025-04-17)
PROC: 0FT44ZZ Resection of Gallbladder, Percutaneous Endoscopic Approach (ICD-10-PCS; 2025-04-17)
PROC: 0FC98ZZ Extirpation of Matter from Common Bile Duct, Via Natural or Artificial Opening Endoscopic (ICD-10-PCS; 2025-04-19)
DX: K80.62 Calculus of gallbladder and bile duct with acute cholecystitis without obstruction (principal); K85.90 Acute pancreatitis without necrosis or infection, unspecified; D50.9 Iron deficiency anemia, unspecified; N20.0 Calculus of kidney; R80.9 Proteinuria, unspecified; R31.29 Other microscopic hematuria
CPT/HCPCS: 47563; 43264; 43262; 43237; 74177; 74300; 74330; 76000; 76700; 80053; 80061; 81003; 81015; 82607; 82728; 82746; 83540; 83550; 83615; 83690; 83735; 84484; 84703; 85025; 85027; 85045; 88304; 93005; 96361; 96374; 96375; 99285; A4300; C1769; J1610; Q9967

== ENCOUNTER → 2025-05-04 11:00 | Outpatient (REF) | payer OTHER, SELFPAY ==
[2025-05-04 11:49] LABS: Hematocrit 37.3 % (37.0-47.0); Hemoglobin 11.2 g/dL (12.0-16.0); Mean Corp Hgb Conc. 30.0 g/dL (33.0-37.0); Mean Corpuscular Volume 86.5 fL (81.0-99.0); Platelet Count 407 10^3/uL (130-400); Red Cell Dist. Width 15.1 % (11.5-14.5)
[2025-05-04 12:21] LABS: ALT (SGPT) 30 U/L (0-35); AST (SGOT) 29 U/L (14-36); Albumin 5.0 g/dl (3.5-5.0); Alkaline Phosphatase 105 U/L (38-126); Total Protein 8.7 g/dl (6.3-8.2)
[2025-05-04 13:16] LABS: Vitamin B12 377 pg/ml (239-931)
== END ==
LOC: REG 11:00
PROVIDERS: ATTENDING PHYSICIAN Nurse Practitioner Adult Health
DX: D50.9 Iron deficiency anemia, unspecified (principal); K80.10 Calculus of gallbladder with chronic cholecystitis without obstruction; K91.89 Other postprocedural complications and disorders of digestive system; K85.90 Acute pancreatitis without necrosis or infection, unspecified
CPT/HCPCS: 36415; 80076; 82607; 85027